=== PATIENT | female | born 1970 | race Caucasian/White ===

== ENCOUNTER 2018-02-22 17:42 | Emergency (ER) | payer MEDICAID, SELFPAY ==
[2018-02-22 17:43] VITALS: BP 151/104; PULSE 89; RESP 16; TEMP 36.8; O2SAT 98; BMI 32.9
[2018-02-22 17:55] VITALS: BP 160/101; PULSE 62; RESP 18; O2SAT 98
[2018-02-22] MEDS: Penicillin Vk 250 MG Tablet 500 MG PO (18:01)
--- NOTE | 2018-02-22 18:01 | ED.DCSUM_ITS ---
- ER Visit Summary Date of Service: 02/22/18 Chief Complaint: Tooth pain History of Present Illness: The patient is a 47 F worsening left upper tooth pain over the past 2 weeks. Hot and cold sensitivities. Subjective fevers. Sister had leftover doxycycline for which she took yesterday, states some swelling did improve. Does not have a dentist. Use Orajel, Tylenol or Motrin with no relief. Tobacco history. No difficulty swallowing. Physical Examination: General: Alert and oriented ?3, no acute distress HEENT: Normocephalic, atraumatic. Moist mucosa membranes. There is dental decay of the premolars on the left, there is no fluctuance or drainage. Slightly tender to palpation. Also decayed extracted tooth number to the right upper premolar, nontender. Extracted tooth 29 and 30. No sublingual edema. Airway patent. Neck: supple, nontender. Cardiovascular: Regular rate and rhythm, no murmurs Respiratory: Normal breath sounds, symmetric, no distress Abdomen: Soft, nontender, nondistended Extremities: Nontender, no edema, pulses intact ?4 Neuro: no focal neurological deficits. Test Results: [] Emergency Department Course and Treatment: Patient started on penicillin. Vital signs are stable. I offered a dental block for symptoms, however she declined. She will continue Tylenol and Motrin. She is given dental list and also discussed to call her insurance company for dentist that may take her insurance in the area. Patient understands and agrees with plan. Treatment Plan: [] Disposition: Discharge Impression: 1. Dental caries 2. Dentalgia This note was generated with [employer] dictation software. It may contain incorrect words, spelling, and punctuation that were not noted in review of the chart prior to signing ED Disposition - Plan for ED Patient: Disposition: Home or Assisted Living Chief Complaint: Dental Diagnosis: Dental caries, Dentalgia Instructions: ED Cavity Dental, ED Tooth Pain Prescriptions: Penicillin V Potassium 500 mg PO 4X/DAY #40 tablet Referrals: NOT,DEFINED [Primary Care Provider] - Dentist,Your [STAFF PHYSICIAN] - 2 Days
[2018-02-22 18:02] VITALS: BP 150/99; PULSE 74; RESP 16; O2SAT 98
== END 2018-02-22 18:07 | disposition home or self-care (01) ==
PROVIDERS: Emergency Provider Emergency Medicine
DX: K02.9 Dental caries, unspecified (principal); Z72.0 Tobacco use
CPT/HCPCS: 99283

== ENCOUNTER 2018-04-06 09:48 | Emergency (ER) | payer MEDICAID, SELFPAY ==
[2018-04-06 09:49] VITALS: BP 166/100; PULSE 78; RESP 18; TEMP 36.6; O2SAT 100; BMI 32.7
[2018-04-06 11:02] VITALS: BP 173/90; PULSE 55; RESP 16; O2SAT 100
--- NOTE | 2018-04-06 11:02 | ED.VIS.GEN ---
History of Present Illness Chief Complaint: Dental Informant: Patient Onset: Days - 3 Context: Sudden Onset - since dental extraction before the weekend Timing: Continuous Quality: ache/throb Location: extraction sites bilat maxillary molars Current Severity: Severe Maximum Severity: Severe Worsened by: eating Associated Symptoms: no fevers, swelling, bleeding Narrative: Try to contact her dentist but it is and no one has answered. She is allergic to codeine, she gets hives and near syncope, they prescribed her hydrocodone and after taking 1 pill she had transient episode of some of the same symptoms so she did not take anymore but is only been taking the ibuprofen that they gave her for pain and she is having trouble eating. - Past Medical History (1) Seizure disorder Status: Chronic Past Medical History - Allergies and Home Meds Allergies/Adverse Reactions: Allergies codeine Allergy (Verified 04/06/18 09:52) Hives Home Medications: Home Medications Medication Instructions Recorded Gabapentin [Neurontin] 400 mg PO TIDCM 04/06/18 Meloxicam [Mobic] 15 mg PO DAILY 04/06/18 Pregabalin [Lyrica] 50 mg PO BID 04/06/18 traMADol [Ultram] 50 mg PO Q4H PRN PRN 2 Days #8 tab 04/06/18 Primary Care Physician: Care Physician,No Primary [Primary Care Provider] - Smoking Status: Current every day smoker Drugs: None Review of Systems ENT: Reports: - - Dental pain. See HPI. No neck pain or stiffness. No sinus pressure or rhinorrhea. Physical Exam Vital Signs/Narrative: Vital Signs Temp Pulse Resp BP Pulse Ox 04/06/18 09:49 98 F 78 18 166/100 H 100 General: Well nourished, Well developed Head: Normocephalic, Atraumatic Eyes: Perrl, EOMI ENT: Moist mucous membranes, No rhinorrhea, - - Dental extraction sites have some granulation tissue, there is no bleeding or discharge. No gingival swelling. No trismus. No abscess. Neck: Supple, Nontender, No lymphadenopathy Skin: Normal color, No rash Neurological: Alert, Oriented x3, Cranial nerves II-XII grossly intact, Normal Strength, Normal Sensation, Normal Gait Psychological: Normal affect Diagnostic/Tx/Re-eval - Medical Decision Making Patient states she can take tramadol okay. Will prescribe her a few of those, she is given a dose of morphine with preventative Zofran here. ED Disposition - Plan for ED Patient: Disposition: Home or Assisted Living Chief Complaint: Dental Diagnosis: Encounter for preoperative dental examination, Postoperative pain Instructions: ED Tooth Pain Prescriptions: traMADol [Ultram] 50 mg PO Q4H PRN PRN 2 Days #8 tab PRN Reason: Pain Referrals: Dentist,Your [STAFF PHYSICIAN] - As soon as possible
[2018-04-06] MEDS: Morphine 4 MG/ML Syringe SC (11:15)
[2018-04-06] MEDS: Ondansetron ODT 4 MG Tablet 8 MG PO (11:15)
== END 2018-04-06 11:49 | disposition home or self-care (01) ==
PROVIDERS: Emergency Provider Emergency Medicine
DX: K08.89 Other specified disorders of teeth and supporting structures (principal); G40.909 Epilepsy, unspecified, not intractable, without status epilepticus; F17.200 Nicotine dependence, unspecified, uncomplicated; Z98.818 Other dental procedure status; Z79.899 Other long term (current) drug therapy; Z88.5 Allergy status to narcotic agent
CPT/HCPCS: 96372; 99284

== ENCOUNTER 2018-05-31 08:17 | Emergency (ER) | payer MEDICAID, SELFPAY ==
[2018-05-31 08:18] VITALS: BP 155/106; PULSE 71; RESP 16; TEMP 35.3; O2SAT 100; BMI 31.1
--- NOTE | 2018-05-31 08:36 | ED.DCSUM_ITS ---
- ER Visit Summary Date of Service: 05/31/18 Chief Complaint: Right lateral arm pain History of Present Illness: The patient is a 47 F with history of bilateral carpal tunnel. Patient states she has been putting off surgery for quite some time and is currently awaiting a referral to orthopedics. She wears cockup splints at night as well as an elbow brace. She has been taking anti- inflammatories without improvement. Physical Examination: Vital signs significant for blood pressure 155/106. Patient's lying in bed no acute distress. Head neck examination unremarkable. Heart is regular rate and rhythm. Lung sounds are clear. Upper extremity examination was tenderness of the carpal tunnel on each wrist with tenderness of the thenar eminence. She has mild decreased sensation to light touch in the fingertips. She has normal cap refill. There is no focal tenderness at the elbow or shoulders. Test Results: [] Emergency Department Course and Treatment: Oars report was performed. She then had 4 perceptions in the past year, most recent for 8 tabs of Ultram in March. She will be given a short course of Ultram as well as a prednisone taper. She is referred to orthopedics for follow-up. Treatment Plan: [] Disposition: Discharge Impression: Bilateral carpal tunnel This note was generated with [employer] dictation software. It may contain incorrect words, spelling, and punctuation that were not noted in review of the chart prior to signing ED Disposition - Plan for ED Patient: Chief Complaint: Upper Extremity Injury Referrals: Care Physician,No Primary [Primary Care Provider] -
--- NOTE | 2018-05-31 08:36 | ED.DEP ---
ED Disposition - Plan for ED Patient: Disposition: Home or Assisted Living Chief Complaint: Upper Extremity Injury Instructions: ED Carpal Tunnel Prescriptions: traMADol [Ultram] 50 mg PO Q4H PRN PRN 3 Days #12 tablet PRN Reason: Pain Prednisone [Deltasone] 60 mg PO DAILY #15 tab Referrals: De England DO [STAFF PHYSICIAN] - As soon as possible
[2018-05-31] MEDS: traMADol 50 MG Tablet 100 MG PO (09:12)
[2018-05-31] MEDS: predniSONE 20 MG Tablet 60 MG PO (09:13)
== END 2018-05-31 09:21 | disposition home or self-care (01) ==
LOC: ED 08:55
PROVIDERS: Emergency Provider Emergency Medicine
DX: G56.03 Carpal tunnel syndrome, bilateral upper limbs (principal); Z72.0 Tobacco use
CPT/HCPCS: 99283

== ENCOUNTER 2018-06-18 16:56 | Emergency (ER) | payer MEDICAID, SELFPAY ==
[2018-06-18 16:57] VITALS: BP 172/113; PULSE 84; RESP 19; TEMP 37.1; O2SAT 100; BMI 36.6
[2018-06-18] MEDS: Ipratropium/Albuterol Sulfate 3 ML AMPUL.NEB INHALATION (17:37)
[2018-06-18 17:38] VITALS: O2SAT 98
[2018-06-18 17:41] VITALS: PULSE 93; RESP 21; O2SAT 100
[2018-06-18] MEDS: Aspirin 81 MG TAB.CHEW 324 MG PO (17:44)
[2018-06-18] MEDS: 0.9% Normal Saline 1,000 ML 150 ML IV (17:44)
--- NOTE | 2018-06-18 17:50 | RAD_ITS ---
STUDY: X-RAY CHEST REASON FOR EXAM: Female, 47 years old. Chest pain TECHNIQUE: PA and lateral COMPARISON: None. FINDINGS: The lungs are clear and expanded. There is no demonstrated pleural abnormality. Borderline cardiomegaly Normal mediastinum and tripp. Normal visualized pulmonary arteries. Normal visualized aortic arch and descending thoracic aorta. Dorsal spine demonstrates mild spondylosis Normal visualized ribs, clavicles, and shoulders. There is no demonstrated abnormality of the visualized soft tissue structures of the upper abdomen. RAD/Chest PA and Lateral IMPRESSION: No acute cardiopulmonary pathology Electronically Signed: Rene Joyce MD at 19:06 EDT , Service support ,
[2018-06-18 17:55] LABS: Absolute Lymphocyte Count 2.04 X10^3/ul (0.83-4.51); Absolute Neutrophil Count 6.1 X10^3/uL (2.0-7.7); Basophil# 0.07 X10^3/uL; Basophil% 0.7 % (0-1); Eosinophil# 0.53 X10^3/uL; Eosinophils% 5.6 % (0-5); Hematocrit 39.2 % (37-47); Hemoglobin 12.4 g/dl (12.0-15.0); Lymphocyte # 2.04 X10^3/ul (4.0); Lymphocyte % 21.5 % (19-41); Mean Corp Hgb Conc 31.6 g/gl (32-36); Mean Corpuscular Hgb 28.3 pg (27.0-32.0); Mean Corpuscular Volume 89.5 fL (81-99); Mean Platelet Vol. 8.9 fl (6.2-12.0); Monocyte# 0.73 X10^3/uL; Monocyte% 7.7 % (0-10); Neutrophil % 64.1 % (47-70); POSITIVE COUNT NO; POSITIVE DIFFERENTIAL NO; POSITIVE MORPHOLOGY NO; Platelet Count 445 K/mm3 (150-450); RBC Distribution Width CV 12.4 % (11.6-14.6); RBC Distribution Width SD 39.7 fl (35.1-43.9); Red Blood Count 4.38 M/mm3 (4.2-5.4); White Blood Count 9.5 K/mm3 (4.4-11.0)
[2018-06-18 17:59] LABS: D-Dimer Quantitative (DVT/PE) 0.61 FEU/ug/m (0.27-0.49)
--- NOTE | 2018-06-18 18:05 | CT_ITS ---
STUDY: CTA CHEST REASON FOR EXAM: Female, 47 years old. Chest pain RADIATION DOSAGE (If Supplied By Facility): CTDIvol = ( 14.72 ) mGy, DLP = ( 454.72 ) mGycm TECHNIQUE: The examination was performed with the intravenous administration of 100ml ml of Isovue 370 contrast material. Post-processing of the angiographic images was performed, with multiplanar reformation and 3D reconstruction. Individualized dose optimization techniques were used for this CT. COMPARISON: None. FINDINGS: Normal enhancement of the main pulmonary artery and right and left pulmonary arteries. Normal enhancement of the bilateral peripheral pulmonary arteries. There is no demonstrated pulmonary embolism. Normal thoracic aorta and visualized great vessels. There is no demonstrated aortic dissection. Heart appears mildly enlarged. Normal mediastinum. Normal hilar regions. Normal visualized trachea and bronchi. The lungs are well expanded. Minor diffuse interstitial thickening. No focal infiltrates or pulmonary nodule Normal pleura. Normal chest wall structures. Dorsal spine demonstrates spondylosis Normal visualized upper abdomen. CT/CTA Chest W/WO Contrast IMPRESSION: Mild nonspecific interstitial thickening.. No acute abnormalities. No evidence for pulmonary embolus aortic aneurysm periaortic leak or dissection Electronically Signed: Rene Joyce MD at 19:10 EDT , Service support ,
[2018-06-18 18:22] LABS: Anion Gap 8 (5-15); BUN 9 mg/dL (7-18); BUN/Creat Ratio 7.9 RATIO (10-20); Calcium,Total 9.1 mg/dL (8.5-10.1); Chloride 104 mmol/L (98-107); Creatinine, Serum 1.14 mg/dL (0.55-1.02); EST Glomerular Filtration Rate 54 mL/min (>60); Est Glom Filt Rate - Afr Amer 66 mL/min (>60); Estimated Creatinine Clearance 48.77 ml/min; Glucose 69 mg/dL (74-106); Potassium 3.9 mmol/L (3.5-5.1); Sodium Level 144 mmol/L (136-145)
[2018-06-18 19:13] VITALS: BP 154/80; PULSE 90; RESP 14; O2SAT 94
[2018-06-18 20:03] VITALS: BP 150/70; PULSE 85; RESP 14; O2SAT 98
--- NOTE | 2018-06-18 20:24 | ED.DCSUM_ITS ---
- ER Visit Summary Date of Service: 06/18/18 Chief Complaint: [Cough] History of Present Illness: The patient is a 47 F [presents the emergency department with a cough that she has had for several weeks. Patient states that she was seen 2 weeks ago and in the emergency department and diagnosed with bronchitis and started on a Z-Bc as well as Tessalon Perles. Patient also was treated with prednisone. Patient continues to cough and she complains of feeling short of breath at times feeling like it is hard to take a deep breath due to some discomfort in her chest. Patient complains of generalized fatigue. Patient did have subjective fever, chills, and sweats. She denies recent travel or surgery. No history of PE or DVT. She has no real medical history.] Physical Examination: [HEENT-PERRLA, EOMI. Cranial nerves II through XII grossly intact. TMs clear. Mucous membranes moist. No adenopathy. Cardiovascular-regular rate and rhythm without murmur or ectopy Lungs-clear to auscultation, chest wall stable without crepitus or subcu emphysema Abdomen-normoactive bowel sounds, soft, nontender, no rebound or rigidity, no peritoneal signs. Extremities-intact ?4, normal range of motion, normal pulses, atraumatic] Test Results: [Chest x-ray obtained was normal. CBC with differential obtained showed a white blood cell count of 9.5, hemoglobin 12, hematocrit 39, platelets 445. Chemistries unremarkable. BUN was 9 creatinine 1.14. D-dimer was 0.61. Troponin was less than 0.015. EKG obtained arrival shows sinus rhythm with a ventricular rate of 82 bpm with no acute I segment changes. Because of the elevated d-dimer a CT of the chest was obtained which showed no evidence of PE or dissection or anything significant.] Emergency Department Course and Treatment: [Patient was given a DuoNeb aerosol] Treatment Plan: [Patient will be dispensed a DuoNeb aerosol and will be given a prescription for Tessalon Perles. Patient will be referred to Dr. Traore who is on-call for pulmonology] Disposition: [Discharged home in stable condition] Impression: [Chest pain-noncardiac Cough Dyspnea] This note was generated with [employer] software. It may contain incorrect words, spelling, and punctuation that were not noted in review of the chart prior to signing ED Disposition - Plan for ED Patient: Chief Complaint: Chest Pain Referrals: Jhoana Son, RN [Primary Care Provider] -
--- NOTE | 2018-06-18 20:24 | ED.DEP ---
ED Disposition - Plan for ED Patient: Chief Complaint: Chest Pain Instructions: ED Chest Pain NonCardiac, ED Dyspnea Shortness of Breath Prescriptions: Benzonatate [Tessalon Perle] 200 mg PO TID PRN PRN #20 cap PRN Reason: Cough Referrals: Jhoana Son RN [Primary Care Provider] - Eliezer Traore MD [STAFF PHYSICIAN] - 3-5 Days
[2018-06-18 20:29] VITALS: BP 164/101; PULSE 74; RESP 19; O2SAT 99
== END 2018-06-18 20:39 | disposition home or self-care (01) ==
LOC: ED 18:35
PROVIDERS: Emergency Provider Emergency Medicine
DX: R07.89 Other chest pain (principal); R74.8 Abnormal levels of other serum enzymes; R05 Cough; R06.00 Dyspnea, unspecified; Z72.0 Tobacco use
CPT/HCPCS: 71046; 71275; 80048; 84484; 85025; 85379; 93005; 94640; 96360; 96361; 99285; Q9967; A4216

== ENCOUNTER 2018-08-15 07:53 | Emergency (ER) | payer MEDICAID, SELFPAY ==
[2018-08-15 07:54] VITALS: BP 176/98; PULSE 97; RESP 15; TEMP 36.5; O2SAT 98; BMI 36.2
--- NOTE | 2018-08-15 08:05 | ED.DCSUM_ITS ---
- ER Visit Summary Date of Service: 08/15/18 Chief Complaint: Left wrist pain History of Present Illness: The patient is a 47 F presents to the emergency department for a wound check. The patient had a left carpal tunnel release by Dr. Ramsey about 9 days ago. She states she is been recovering well. She states that she was outside of her house on Saturday. Someone had knocked over a pallet, and she went to grab it. She states when she grabbed it, she felt something pop in her wrist. When she took on her dressing, she noticed that 1 of her stitches was loose. She is been changing the dressing daily. She states that there was some scant drainage from the area. She denies any increasing pain. She denies any fevers or chills. She is not scheduled to follow-up with orthopedics until next week. Physical Examination: Exam is relatively unremarkable. Patient's incision is clean and dry. There is no purulence. There is minimal erythema around the wound edges. The most distal stitch has dehisced. The rest of the stitches are intact. There is no significant tenderness to palpation. Her pulses are normal. Her neurologic function is preserved. Test Results: [] Emergency Department Course and Treatment: The patient presents to the emergency department with wound dehiscence. It is only a very small area. The rest of her stitches are intact. I did discuss the patient with Dr. Ramsey. At this time, we are going to place a Steri-Strip at the distal end. The patient will be placed on Keflex. There is no necrosis of the skin. There is no significant cellulitis or drainage. She will keep her outpatient follow-up. I did funeral prearrangement counselor her on concerning symptoms and reasons to return. I instructed her that the area increases with redness, pain, fever or other dangerous symptoms she needs to return to the emergency department for reevaluation. She is comfortable with this plan of care. Treatment Plan: [] Disposition: Discharge Impression: 1. Postoperative wound dehiscence left wrist This note was generated with [employer] software. It may contain incorrect words, spelling, and punctuation that were not noted in review of the chart prior to signing ED Disposition - Plan for ED Patient: Chief Complaint: Wound Check Instructions: ED Wound Infec After Surgery Prescriptions: Cephalexin [Keflex] 500 mg PO Q6 #40 cap Referrals: Sonny Ramsey DO [STAFF PHYSICIAN] -
[2018-08-15] MEDS: Cephalexin 250 MG Capsule 500 MG PO (08:20)
== END 2018-08-15 08:22 | disposition home or self-care (01) ==
LOC: ED 08:11
PROVIDERS: Emergency Provider Emergency Medicine
DX: T81.31XA Disruption of external operation (surgical) wound, not elsewhere classified, initial encounter (principal)
CPT/HCPCS: 99282

== ENCOUNTER 2019-02-10 17:41 | Observation (INO) | payer MEDICAID, SELFPAY ==
[2019-02-10] VITALS (10 sets, daily range): BP systolic 109–146; BP diastolic 69–131; PULSE 62–77; RESP 11–21; TEMP 36.6; O2SAT 97–99; BMI 37.1; BMI 37.2; BMI 35.7
--- NOTE | 2019-02-10 18:14 | EKG12_ITS ---
Test Reason : REPEAT CP Blood Pressure : / mmHG Vent. Rate : 063 BPM Atrial Rate : 063 BPM P-R Int : 130 ms QRS Dur : 092 ms QT Int : 426 ms P-R-T Axes : 037 052 015 degrees QTc Int : 435 ms Sinus rhythm with Fusion complexes Minimal voltage criteria for LVH, may be normal variant Nonspecific T wave abnormality , cannot exclude acute anterior ischemia Abnormal ECG Confirmed by BRADLEY ORTEGA ([id number]), fan mail editor BENITO OLSEN ([id number]) on 02/13/2019 11:19:15 AM Referred By: Justin Patel Confirmed By:BRADLEY ORTEGA
--- NOTE | 2019-02-10 18:27 | ED.VISSUMM ---
- ER Visit Summary Date of Service: 02/10/19 Chief Complaint: Left-sided chest pain History of Present Illness: The patient is a 48 F history of a reportedly nonsignificant cardiac cath 2 years ago at [facility]. History of hypertension high cholesterol currently taking no medications. She is on no blood thinners. She states yesterday afternoon she got sudden onset left-sided chest pain has been constant. Associated with nausea, diaphoresis and exertion. Over the last several weeks she has had exertional dyspnea and very minimal exertional chest pain with walking steps. No history of DVT or PE. No recent travel, surgery or calf pain. She does have a family history her mother had cardiac disease in her 60s underwent a CABG and had an [place]. Physical Examination: Middle-aged female. Vital signs are stable afebrile. Pulse ox 99% on room air no signs of hypoxia. No distress. HEENT exam unremarkable. Neck nontender no JVD. Lungs clear to auscultation bilaterally. Heart regular rate and rhythm rate about 60 no murmur. Chest was completely nontender. No ecchymosis or bruising. Abdomen is soft and nontender. Extremities moves all 4. She is a moderate-sized bruise on her right thigh that she says occurred without any trauma. Calves are nontender without edema or cords. Equal symmetrical radial pulses. Back nontender. Neurologically she is awake alert with no focal motor deficits. Test Results: Initial EKG shows a sinus rhythm rate of 77 with LVH. There is questionable convex ST abnormalities in V1 and V2 with similar to prior EKG from June 2018. A repeat EKG was obtained again shows a sinus rhythm rate of [address]-T wave changes but they are not new. No depression. Otherwise no other inverted T waves. Chest x-ray shows no acute abnormality. Normal cardiac silhouette. CBC White count of 9. Hemoglobin 12. Electrolytes unremarkable normal creatinine and gap. Troponin normal at 0.015. A second EKG was performed again shows a sinus rhythm at a rate of [address]-T wave abnormalities in V1 and V2 no significant change from the first and only subtly different from a prior EKG from 2018 Emergency Department Course and Treatment: Baby aspirin p.o. Nitro paste. Treatment Plan: Patient has a decent story for this potentially being cardiac chest pain. Risk factors include family history and she is a smoker. We attempted to get old cardiac cath report from [place] and are awaiting those results. I will speak to the hospitalist about admission. Disposition: Admission Impression: Acute chest pain uncertain etiology This note was generated with [employer] dictation software. It may contain incorrect words, spelling, and punctuation that were not noted in review of the chart prior to signing ED Disposition - Plan for ED Patient: Referrals: Jhoana Son, CAFE MANAGER-C [Primary Care Provider] -
--- NOTE | 2019-02-10 18:30 | ED.DCSUM_ITS ---
- ER Visit Summary Date of Service: 02/10/19 Chief Complaint: Left-sided chest pain History of Present Illness: The patient is a 48 F history of a reportedly nonsignificant cardiac cath 2 years ago at [facility]. History of hypertension high cholesterol currently taking no medications. She is on no blood thinners. She states yesterday afternoon she got sudden onset left-sided chest pain has been constant. Associated with nausea, diaphoresis and exertion. Over the last several weeks she has had exertional dyspnea and very minimal exertional chest pain with walking steps. No history of DVT or PE. No recent travel, surgery or calf pain. She does have a family history her mother had cardiac disease in her 60s underwent a CABG and had an [place]. Physical Examination: Middle-aged female. Vital signs are stable afebrile. Pulse ox 99% on room air no signs of hypoxia. No distress. HEENT exam unremarkable. Neck nontender no JVD. Lungs clear to auscultation bilaterally. Heart regular rate and rhythm rate about 60 no murmur. Chest was completely nontender. No ecchymosis or bruising. Abdomen is soft and nontender. Extremities moves all 4. She is a moderate-sized bruise on her right thigh that she says occurred without any trauma. Calves are nontender without edema or cords. Equal symmetrical radial pulses. Back nontender. Neurologically she is awake alert with no focal motor deficits. Test Results: Initial EKG shows a sinus rhythm rate of 77 with LVH. There is questionable convex ST abnormalities in V1 and V2 with similar to prior EKG from June 2018. A repeat EKG was obtained again shows a sinus rhythm rate of [address]-T wave changes but they are not new. No depression. Otherwise no other inverted T waves. Chest x-ray shows no acute abnormality. Normal cardiac silhouette. CBC White count of 9. Hemoglobin 12. Electrolytes unremarkable normal creatinine and gap. Troponin normal at 0.015. A second EKG was performed again shows a sinus rhythm at a rate of [address]-T wave abnormalities in V1 and V2 no significant change from the first and only subtly different from a prior EKG from 2018 Emergency Department Course and Treatment: Baby aspirin p.o. Nitro paste. Treatment Plan: Patient has a decent story for this potentially being cardiac chest pain. Risk factors include family history and she is a smoker. We attempted to get old cardiac cath report from [place] and are awaiting those results. I will speak to the hospitalist about admission. Disposition: Admission Impression: Acute chest pain uncertain etiology This note was generated with [employer] dictation software. It may contain incorrect words, spelling, and punctuation that were not noted in review of the chart pr ior to signing ED Disposition - Plan for ED Patient: Referrals: Jhoana Son, [employer]AMETER-C [Primary Care Provider] -
[2019-02-10] MEDS: Nitroglycerin Oint 1 INCH PACKET TRANSDERM. (18:31)
--- NOTE | 2019-02-10 18:36 | RAD_ITS ---
STUDY: X-RAY CHEST REASON FOR EXAM: Female, 48 years old. Chest pain TECHNIQUE: Single frontal view of the chest. COMPARISON: 06/18/2018 FINDINGS: The lungs are clear and expanded. There is no demonstrated pleural abnormality. Normal size heart. Normal mediastinum and tripp. Normal visualized pulmonary arteries. Normal visualized aortic arch and descending thoracic aorta. Normal visualized thoracic spine. Normal visualized ribs, clavicles, and shoulders. There is no demonstrated abnormality of the visualized soft tissue structures of the upper abdomen. RAD/Chest 1 View (Portable) IMPRESSION: Normal x-ray examination of the chest. Electronically Signed: Morgan Johnston MD at 19:27 EDT Tel , Service support ,
[2019-02-10 18:56] LABS: Absolute Lymphocyte Count 2.34 X10^3/ul (0.83-4.51); Absolute Neutrophil Count 5.6 X10^3/uL (2.0-7.7); Basophil# 0.03 X10^3/uL; Basophil% 0.3 % (0-1); Eosinophil# 0.33 X10^3/uL; Eosinophils% 3.7 % (0-5); Hematocrit 38.9 % (37-47); Hemoglobin 12.7 g/dl (12.0-15.0); Lymphocyte # 2.34 X10^3/ul (4.0); Lymphocyte % 26.1 % (19-41); Mean Corp Hgb Conc 32.6 g/gl (32-36); Mean Corpuscular Hgb 28.5 pg (27.0-32.0); Mean Corpuscular Volume 87.4 fL (81-99); Mean Platelet Vol. 9.1 fl (6.2-12.0); Monocyte# 0.64 X10^3/uL; Monocyte% 7.2 % (0-10); Neutrophil # 5.59 X10^3/uL (2.7-7.7); Neutrophil % 62.5 % (47-70); Platelet Count 418 K/mm3 (150-450); RBC Distribution Width CV 13.2 % (11.6-14.6); RBC Distribution Width SD 42.4 fl (35.1-43.9); Red Blood Count 4.45 M/mm3 (4.2-5.4)
[2019-02-10 18:57] LABS: POSITIVE COUNT NO; POSITIVE DIFFERENTIAL NO; POSITIVE MORPHOLOGY NO
[2019-02-10 19:14] LABS: Anion Gap 6 (5-15); BUN 10 mg/dL (7-18); BUN/Creat Ratio 10.8 RATIO (10-20); Calcium,Total 8.8 mg/dL (8.5-10.1); Chloride 106 mmol/L (98-107); Creatinine, Serum 0.93 mg/dL (0.55-1.02); EST Glomerular Filtration Rate 69 mL/min (>60); Est Glom Filt Rate - Afr Amer 83 mL/min (>60); Estimated Creatinine Clearance 59.15 ml/min; Glucose 68 mg/dL (74-106); Potassium 3.7 mmol/L (3.5-5.1); Sodium Level 141 mmol/L (136-145)
--- NOTE | 2019-02-10 20:30 | HP.PCM_ITS ---
Problem List (1) Chest pain at rest Status: Acute (2) Seizure disorder Status: Chronic History of Present Illness Date of Admission: 02/10/19 Chief Complaint: chest pain The patient is a 48 year old F with a significant history of tobacco abuse; hypertension; seizure disorder and hyperlipidemia who presented to the emergency department with 1 day history of excruciating episodic left-sided chest pain. She describes her chest pain as cramping. Associated with her symptoms is nausea; shortness of breath; a feeling of passing out and diaphoresis. She denies any vomiting. Movement exacerbates the pain. Nitroglycerin paste which she received at the emergency department helped improve her pain. She was given aspirin by the paramedics. Two years ago patient had a cardiac workup at [facility]. Reportedly heart catheter was unremarkable at that time. She reports swelling of her bilateral legs and bruises to bilateral thighs. She reported she lost about 100 pounds and she no longer required a blood pressure medicine. She does report that she no longer requires any seizure medicine at this time. She reported that her mother has heart disease. Her mother had CABG when she was around age 68. Also her mother had a stroke. She reported that her father had hypertension and diabetes. Past Medical History Past Medical History (Chronic Problems): Chronic Problems (Last Reviewed 02/10/19 @ 20:46 by Justin Patel MD) Seizure disorder (Chronic) Medical History: Medical History (Last Reviewed 02/10/19 @ 20:46 by Justin Patel MD) Anemia D64.9 Allergies codeine Allergy (Verified 02/10/19 17:47) Hives hydrocodone Allergy (Verified 02/10/19 18:02) Hives oxycodone Allergy (Verified 02/10/19 18:02) Hives Home Medications: Ambulatory Orders Medication Instructions Recorded NK 02/10/19 Surgical History: - - x3 Lives: Spouse/ Significant Other Smoking Status: Current every day smoker Tobacco Use: Cigarettes - *Family History Maternal Family History: Family History (Last Reviewed 02/10/19 @ 20:44 by Justin Patel MD) Other CVA (cerebral vascular accident) Heart disease Paternal Family History: Family History (Last Reviewed 02/10/19 @ 20:44 by Justin Patel MD) Other CVA (cerebral vascular accident) Heart disease Review of Systems Constitutional: Denies: Chills, Fever, Weight Change HEENT: Denies: Head Aches, Sinus Congestion, Sinus Drainage Cardiovascular: Reports: Chest Pain, Edema. Denies: Palpitations Respiratory: Reports: Shortness of Breath. Denies: Cough, Shortness of breath at rest, Sputum production Gastrointestinal: Reports: Nausea. Denies: Abdominal Pain, Vomiting Genitourinary: Denies: Dysuria Musculoskeletal: Denies: Joint Pain, Joint Tenderness Skin: Denies: Rash, Wounds Neurological: Denies: Numbness, Tingling, Focal weakness Psychiatric: Denies: Anxiety, Depression, Homicidal Ideations, Suicidal Ideations Hematologic/ Lymphatic: Denies: Easy Bruising, Easy Bleeding VTE Information - Inpt Only VTE Present on Admission: No VTE Mechan Device Prophylaxis: None VTE Pharm Prophylaxis ordered?: Yes Patient Problems: Active and Suspected Problems (Last Reviewed 02/10/19 @ 20:46 by Justin Patel MD) Chest pain at rest (Acute) - Physical Exam General: Alert, Oriented x3, Cooperative HEENT: Atraumatic, PERRLA, EOMI, Normocephalic Neck: Supple, No JVD, Negative Carotid Bruits Lungs: Clear to auscultation, Normal air movement Cardiovascular: Regular rate, No murmurs Abdomen: Bowel Sounds Present, Soft, Non Tender Extremities: No edema, Capillary Refill Less than 3 Seconds Skin: - - Ecchymosis on bilateral thighs. Musculoskeletal: No Tenderness to Palpation of Joints or Extremities Neurological: Neuro grossly intact Psych/Mental Status: Normal Affect, Appropriate Vital Signs Temp Pulse Resp BP Pulse Ox 98 F 62 14 117/87 H 97 02/10/19 17:42 02/10/19 20:00 02/10/19 20:00 02/10/19 20:00 02/10/19 20:00 Oxygen Delivery Method Room Air Weight: 92.2 kg Body Mass Index (BMI) 37.1 Laboratory Tests Past 24 Hrs 02/10/19 02/10/19 18:00 18:00 WBC 9.0 RBC 4.45 Hgb 12.7 Hct 38.9 MCV 87.4 MCH 28.5 MCHC 32.6 RDW 13.2 RDW Differential 42.4 Plt Count 418 MPV 9.1 Immature Gran % (Auto) 0.200 Neut % (Auto) 62.5 Lymph % (Auto) 26.1 Robeson % (Auto) 7.2 Eos % (Auto) 3.7 Baso % (Auto) 0.3 Absolute Neuts (auto) 5.6 Absolute Lymphs (auto) 2.34 Total Counted Not Reportable Sodium 141 Potassium 3.7 Chloride 106 Carbon Dioxide 29.0 Anion Gap 6 BUN 10 Creatinine 0.93 Estim Creat Clear Calc 59.15 Est GFR (MDRD) Af Amer 83 Est GFR (MDRD) Non-Af 69 BUN/Creatinine Ratio 10.8 Glucose 68 L Calcium 8.8 Troponin I < 0.015 Assessment/Plan All Active Problems (Last Reviewed 02/10/19 @ 20:46 by Justin Patel MD) Chest pain at rest (Acute) The patient is a 48 year old F with a significant history of tobacco abuse; hypertension; seizure disorder and hyperlipidemia who presented to the emergency department with 1 day history of excruciating episodic left-sided chest pain. Chest pain Admit to a monitored bed on PCU CXR independently reviewed confirms no acute cardiopulmonary process. EKG independently reviewed confirms T wave inversion in leads V2. Repeated EKG showed similar findings. Old records reviewed showed no T wave inversions on EKG taken on 06/18/2018. ASA 81 mg p.o. daily Patient with nitroglycerin placed at the emergency department Morphine as needed for pain We will check lipid panel. High intensity statin nightly ordered Serial cardiac enzymes Stat EKG as needed for chest pain Chemical Stress test in the AM if the cardiac enzymes are negative Hypoglycemia Blood glucose on BMP was 68. We will check Accu-Chek every 4 hours. Placed on D5 half-normal saline at this time. Tobacco abuse Counseled Declined nicotine patch. Hypertension Reportedly did not need blood pressure medication after losing 100 pounds. On presentation blood pressure was within goal. Trend blood pressures. Seizure disorder Reportedly she is not taking any medication at home at this time. DVT prophylaxis Subcutaneous Lovenox Code Visit OBSV E&M: 58060 Initial observation care L3
--- NOTE | 2019-02-10 20:47 | EKG12_ITS ---
Test Reason : CP Blood Pressure : / mmHG Vent. Rate : 077 BPM Atrial Rate : 077 BPM P-R Int : 128 ms QRS Dur : 076 ms QT Int : 396 ms P-R-T Axes : 000 057 009 degrees QTc Int : 448 ms Normal sinus rhythm Minimal voltage criteria for LVH, may be normal variant Nonspecific T wave abnormality , cannot exclude ischemia Abnormal ECG Confirmed by BRADLEY ORTEGA ([id number]), magazine editor BENITO OLSEN ([id number]) on 02/13/2019 11:20:11 AM Referred By: Justin Patel Confirmed By:BRADLEY ORTEGA
[2019-02-10] MEDS: Dext 5%-0.45% NS 1,000 ML 75 ML IV (21:02)
[2019-02-10] MEDS: Atorvastatin Calcium 80 MG Tablet PO (21:33)
[2019-02-11 00:36] LABS: Bedside Glucose 90 mg/dL (70-110)
[2019-02-11] MEDS: Acetaminophen 325 MG Tablet 650 MG PO (01:45)
[2019-02-11 02:26] LABS: Bedside Glucose 108 mg/dL (70-110)
[2019-02-11 03:00] VITALS: PULSE 79
[2019-02-11 03:15] VITALS: BP 122/76; PULSE 70; RESP 16; TEMP 36.7; O2SAT 96
--- NOTE | 2019-02-11 05:55 | EKG12_ITS ---
Test Reason : AM Blood Pressure : / mmHG Vent. Rate : 061 BPM Atrial Rate : 061 BPM P-R Int : 134 ms QRS Dur : 092 ms QT Int : 400 ms P-R-T Axes : 067 054 031 degrees QTc Int : 402 ms Normal sinus rhythm Normal ECG When compared with ECG of 10-FEB-2019 20:47, MANUAL COMPARISON REQUIRED, DATA IS UNCONFIRMED Confirmed by ROSE POWERS, TAMIKA ([id number]), image editor BENITO OLSEN ([id number]) on 02/16/2019 1:19:06 PM Referred By: Justin Patel Confirmed By:TAMIKA ROSE MD
[2019-02-11 06:01] VITALS: BP 145/90; PULSE 63; RESP 16; TEMP 36.6; O2SAT 97
[2019-02-11] MEDS: Aspirin E.C. 81 MG Tablet PO (06:06)
[2019-02-11 06:22] LABS: Prothrombin Time (Protime)PT. 12.6 SECONDS (11.7-14.9)
[2019-02-11 06:23] LABS: Partial Thromboplast Time 29.9 Seconds (24.1-36.2)
[2019-02-11 06:33] LABS: Absolute Lymphocyte Count 2.45 X10^3/ul (0.83-4.51); Absolute Neutrophil Count 5.2 X10^3/uL (2.0-7.7); Basophil# 0.04 X10^3/uL; Basophil% 0.5 % (0-1); Eosinophil# 0.31 X10^3/uL; Eosinophils% 3.5 % (0-5); Hematocrit 37.6 % (37-47); Hemoglobin 11.8 g/dl (12.0-15.0); Lymphocyte # 2.45 X10^3/ul (4.0); Lymphocyte % 27.7 % (19-41); Mean Corp Hgb Conc 31.4 g/gl (32-36); Mean Corpuscular Hgb 27.8 pg (27.0-32.0); Mean Corpuscular Volume 88.7 fL (81-99); Mean Platelet Vol. 8.8 fl (6.2-12.0); Monocyte# 0.78 X10^3/uL; Monocyte% 8.8 % (0-10); Neutrophil # 5.24 X10^3/uL (2.7-7.7); Neutrophil % 59.3 % (47-70); Platelet Count 366 K/mm3 (150-450); RBC Distribution Width CV 13.5 % (11.6-14.6); RBC Distribution Width SD 43.7 fl (35.1-43.9); Red Blood Count 4.24 M/mm3 (4.2-5.4); White Blood Count 8.8 K/mm3 (4.4-11.0)
[2019-02-11 06:36] LABS: POSITIVE COUNT NO; POSITIVE DIFFERENTIAL NO; POSITIVE MORPHOLOGY NO
[2019-02-11 06:39] LABS: Anion Gap 5 (5-15); BUN 14 mg/dL (7-18); BUN/Creat Ratio 15.3 RATIO (10-20); Calcium,Total 8.5 mg/dL (8.5-10.1); Chloride 107 mmol/L (98-107); Cholesterol 135 mg/dL (200); Creatinine, Serum 0.92 mg/dL (0.55-1.02); EST Glomerular Filtration Rate 70 mL/min (>60); Est Glom Filt Rate - Afr Amer 85 mL/min (>60); Estimated Creatinine Clearance 59.79 ml/min; Glucose 101 mg/dL (74-106); High Density Lipoprotein 51 mg/dL; Potassium 3.7 mmol/L (3.5-5.1); Sodium Level 139 mmol/L (136-145); Triglycerides 77 mg/dL; Very Low Density Lipoprotein 15 mg/dL (5-40)
[2019-02-11 07:29] VITALS: PULSE 62
[2019-02-11 07:45] LABS: Bedside Glucose 111 mg/dL (70-110)
[2019-02-11 08:16] VITALS: O2SAT 95
--- NOTE | 2019-02-11 11:38 | DCINST_ITS ---
- Discharge Diagnoses Current Active Problems: Current Active and Chronic Problems (Last Reviewed 02/10/19 @ 20:46 by Justin Patel MD) Chest pain at rest (Acute) You will use the following diet at home:: No restrictions Discharge Activity: Return to Normal Activity Call your doctor if you observe: Shortness of breath, Dizziness, Fainting spells, Chest pain Allergies/Adverse Reactions: Allergies codeine Allergy (Verified 02/10/19 17:47) Hives hydrocodone Allergy (Verified 02/10/19 18:02) Hives oxycodone Allergy (Verified 02/10/19 18:02) Hives Medications to take at Discharge NK 02/10/19 Primary Care Physician: Jhoana Son NP-C [Primary Care Provider] - Please follow up with your Primary Care Physician in: 1 Week Test Results: Test results from this visit will be discussed in further detail at your follow- up appointment, if applicable. Proposed Discharge Date: 02/11/19
[2019-02-11 11:55] LABS: Bedside Glucose 77 mg/dL (70-110)
[2019-02-11 12:00] VITALS: BP 158/92; PULSE 99; RESP 18; TEMP 36.7; O2SAT 99
--- NOTE | 2019-02-11 12:20 | CASEMGMT ---
Patient has a Healthcare POA and she is aware it is not on file at [facility]. She does not have a Healthcare LW. Airam FORBES MSW
--- NOTE | 2019-02-11 12:35 | STRESSREP ---
Stress Test Report 48-year-old lady with a history of chest pain. Medications: Aspirin Lipitor. Stress protocol: Resting EKG demonstrates normal sinus bradycardia with a rate of 57 beats minute normal intervals are noted T wave inversions noted in lead V2. Next para 0.4 mg of regadenoson was infused per usual protocol followed by rapid intravenous saline flush injection continuous EKG monitoring was performed. Patient maintained sinus rhythm throughout the recording. The maximum heart rate attained was 105 bpm which was 60% of maximum predicted heart rate the maximum workload was 1 metabolic equivalent. At rest there were no ST or T wave changes noted suggest abnormal flow reserve at peak infusion nonspecific ST-T wave changes were noted the resting blood pressure 148/92 final blood pressure was 158/94 mmHg. Myocardial perfusion protocol. 11.7 mCi of technetium 99m sestamibi was injected at rest. 0.4 mg of regadenoson was infused per usual protocol peak infusion 34.6 mCi of technetium 99m sestamibi was injected stress images were obtained stress and rest images were reconstructed and compared in the short axis vertical and horizontal long axis. Gated images were also obtained per Perfusion SPECT analysis: Review of the stress images demonstrate normal uptake of tracer noted in all areas of myocardium the resting images similarly demonstrate normal uptake of tracer noted in all areas of the myocardium. No areas of reversibility are noted suggest ischemia no previous infarct is noted. Gated SPECT analysis: The gated ejection fraction is noted to be 64%. Conclusion: Normal pharmacologic myocardial perfusion stress test. Preserved ejection fraction.
[2019-02-11 12:39] LABS: D-Dimer Quantitative (DVT/PE) 0.27 FEU/ug/m (0.27-0.49)
--- NOTE | 2019-02-11 13:50 | DS.PCM_ITS ---
<Lauren García - Last Filed: 02/11/19 14:01> Discharge Date and Diagnosis Date of Admission: 02/10/19 Date of Discharge: 02/11/19 - Primary Discharge Diagnosis Active and Suspected Problems (Last Reviewed 02/10/19 @ 20:46 by Justin Patel MD) 1. Non-cardiac chest pain, ACS ruled out 2. Hypertension 3. History of seizure disorder 4. Tobacco dependence 5. Hypoglycemia, resolved - Secondary Discharge Diagnosis Chronic Problems (Last Reviewed 02/10/19 @ 20:46 by Justin Patel MD) Seizure disorder (Chronic) Hospital Course and Treatment Imaging Results: Diagnostic Data Chest X-Ray 02/10/19 18:36 IMPRESSION: Normal x-ray examination of the chest. Electronically Signed: Morgan Johnston MD at 19:27 EDT Tel , Service support , Operations: None Procedures: Stress test Summary of Care Provided: The patient is a 48 year old F admitted 02/10/19 due to chest pain. 1. Non-cardiac chest pain, ACS ruled out-troponin negative. EKG without ST-T changes. D-dimer negative. Chest x-ray normal. Suspect possible anxiety component related to current symptoms versus musculoskeletal in nature. Patient reports she had a cardiac workup 2 years ago at [facility] which was unremarkable. Follow up with PCP in 1 Week. 2. Hypertension-she reports significant weight loss and no longer needs blood pressure medication. Blood pressure stable. 3. History of seizure disorder-reported by patient. Not on preventative regimen. 4. Tobacco dependence-encouraged smoking cessation. 5. Hypoglycemia, resolved General: Alert, Oriented x3, Cooperative HEENT: Atraumatic, PERRLA, EOMI, Normocephalic Neck: Supple, No JVD, Negative Carotid Bruits Lungs: Clear to auscultation, Normal air movement Cardiovascular: Regular rate, No murmurs Abdomen: Bowel Sounds Present, Soft, Non Tender Extremities: No edema, Capillary Refill Less than 3 Seconds Skin: No rashes, No breakdown Musculoskeletal: No Tenderness to Palpation of Joints or Extremities Neurological: Cranial nerves II-XII grossly intact Psych/Mental Status: Normal Affect, Appropriate Patient seen and examined prior to discharge. Physical assessment as noted above. Patient is stable for discharge with follow up recommendations as noted above. This patient was seen by LAUREN Ford under the supervision of Dr. Gardner. - Physical Exam Vital Signs Temp Pulse Resp BP Pulse Ox 98.0 F 99 18 158/92 H 99 02/11/19 12:00 02/11/19 12:00 02/11/19 12:00 02/11/19 12:00 02/11/19 12:00 Oxygen Delivery Method Room Air Weight: 195 lb 5.273 oz Body Mass Index (BMI) 35.7 Intake and Output for Last 24 Hours 02/09/19 02/10/19 02/11/19 23:59 23:59 23:59 Intake Total 512 / 512 487 / 487 Balance 512 / 512 487 / 487 Laboratory Tests Past 24 Hrs 02/10/19 02/10/19 02/10/19 18:00 18:00 21:00 WBC 9.0 RBC 4.45 Hgb 12.7 Hct 38.9 MCV 87.4 MCH 28.5 MCHC 32.6 RDW 13.2 RDW Differential 42.4 Plt Count 418 MPV 9.1 Immature Gran % (Auto) 0.200 Neut % (Auto) 62.5 Lymph % (Auto) 26.1 Dukes % (Auto) 7.2 Eos % (Auto) 3.7 Baso % (Auto) 0.3 Absolute Neuts (auto) 5.6 Absolute Lymphs (auto) 2.34 Total Counted Not Reportable PT INR APTT D-Dimer Quant (PE/DVT) Sodium 141 Potassium 3.7 Chloride 106 Carbon Dioxide 29.0 Anion Gap 6 BUN 10 Creatinine 0.93 Estim Creat Clear Calc 59.15 Est GFR (MDRD) Af Amer 83 Est GFR (MDRD) Non-Af 69 BUN/Creatinine Ratio 10.8 Glucose 68 L Calcium 8.8 Troponin I < 0.015 < 0.015 Triglycerides Cholesterol LDL Cholesterol VLDL Cholesterol HDL Cholesterol 02/11/19 02/11/19 02/11/19 00:15 05:56 05:56 WBC RBC Hgb Hct MCV MCH MCHC RDW RDW Differential Plt Count MPV Immature Gran % (Auto) Neut % (Auto) Lymph % (Auto) Dukes % (Auto) Eos % (Auto) Baso % (Auto) Absolute Neuts (auto) Absolute Lymphs (auto) Total Counted PT 12.6 INR 1.0 APTT 29.9 D-Dimer Quant (PE/DVT) Sodium 139 Potassium 3.7 Chloride 107 Carbon Dioxide 27.0 Anion Gap 5 BUN 14 Creatinine 0.92 Estim Creat Clear Calc 59.79 Est GFR (MDRD) Af Amer 85 Est GFR (MDRD) Non-Af 70 BUN/Creatinine Ratio 15.3 Glucose 101 Calcium 8.5 Troponin I < 0.015 Triglycerides 77 Cholesterol 135 LDL Cholesterol 69 VLDL Cholesterol 15 HDL Cholesterol 51 02/11/19 02/11/19 05:56 05:56 WBC 8.8 RBC 4.24 Hgb 11.8 L Hct 37.6 MCV 88.7 MCH 27.8 MCHC 31.4 L RDW 13.5 RDW Differential 43.7 Plt Count 366 MPV 8.8 Immature Gran % (Auto) 0.200 Neut % (Auto) 59.3 Lymph % (Auto) 27.7 Dukes % (Auto) 8.8 Eos % (Auto) 3.5 Baso % (Auto) 0.5 Absolute Neuts (auto) 5.2 Absolute Lymphs (auto) 2.45 Total Counted Not Reportable PT INR APTT D-Dimer Quant (PE/DVT) 0.27 Sodium Potassium Chloride Carbon Dioxide Anion Gap BUN Creatinine Estim Creat Clear Calc Est GFR (MDRD) Af Amer Est GFR (MDRD) Non-Af BUN/Creatinine Ratio Glucose Calcium Troponin I Triglycerides Cholesterol LDL Cholesterol VLDL Cholesterol HDL Cholesterol POC Glucose 02/11/19 02/11/19 02/11/19 11:48 06:09 02:18 POC Glucose 77 111 H 108 02/10/19 21:33 POC Glucose 90 Discharge Diet: No Restrictions Discharge Activity: Return to Normal Activity Call your doctor if you observe: Shortness of breath, Dizziness, Fainting spells, Chest pain Home Medications: Medications to take at Discharge NK 02/10/19 Primary Care Physician: Jhoana Son NP-C [Primary Care Provider] - Please follow up with your Primary Care Physician in: 1 Week Disposition: Home Minutes spent on discharge:: 35 Patient Condition:: Stable Medical Necessity - Tobacco Use Smoking Status: Current every day smoker Tobacco Use: Cigarettes Meaningful Use Info Meaningful Use Diagnoses (Choose all that apply): None applicable <JjBeaufort - Last Filed: 02/12/19 16:07> Discharge Date and Diagnosis - Secondary Discharge Diagnosis Chronic Problems (Last Reviewed 02/10/19 @ 20:46 by Justin Patel MD) Seizure disorder (Chronic) Hospital Course and Treatment Summary of Care Provided: The patient is a 48 year old F past medical history of nicotine dependence, seizure disorder, 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 Patient came in with chest pain, EKG was unremarkable. D-dimer was negative. Chest x-ray was unremarkable. Patient had reproducible anterior chest wall tenderness. She underwent stress test that was negative. She was recommended to take some NSAIDs and topical preparation for the musculoskeletal chest pain Subjective: On the day of discharge, patient was seen and examined. Denied any new complaint. Complains of anterior chest wall discomfort is worse with movement. - Physical Exam General: Alert, Oriented x3, Cooperative, No apparent distress HEENT: Atraumatic, PERRLA, EOMI, Normocephalic Oral: Moist Mucosa Neck: Supple Lungs: Clear to auscultation, Normal air movement, - - Tenderness over the anterior chest wall Cardiovascular: Regular rate, Regular Rhythm, Normal S1, Normal S2, No murmurs Abdomen: Bowel Sounds Present, Soft, Non Tender, Non-Distended, No Hepato- splenomegaly Extremities: No edema Skin: No rashes Musculoskeletal: No Tenderness to Palpation of Joints or Extremities Lymphatic: No Cervical, Supraclavicular, or Inguinal Adenopathy Neurological: Cranial nerves II-XII grossly intact Psych/Mental Status: Normal Affect, Appropriate Vital Signs Temp Pulse Resp BP Pulse Ox 98.0 F 99 18 158/92 H 99 02/11/19 12:00 02/11/19 12:00 02/11/19 12:00 02/11/19 12:00 02/11/19 12:00 Oxygen Delivery Method Room Air Weight: 88.6 kg Body Mass Index (BMI) 35.7 Intake and Output for Last 24 Hours 02/10/19 02/11/19 02/12/19 23:59 23:59 23:59 Intake Total 512 / 512 487 / 487 Balance 512 / 512 487 / 487 Code Visit OBSV E&M: 19803 Observation care discharge
== END 2019-02-11 11:36 | disposition home or self-care (01) ==
LOC: ED 18:32 → PCU 20:36
PROVIDERS: Nurse Practitioner Family; Admitting Provider Hospitalist; Emergency Provider Emergency Medicine; Family Provider Nurse Practitioner Family; PCP Nurse Practitioner Family; Referring Provider Hospitalist; Visit Provider Internal Medicine
DX: R07.89 Other chest pain (principal); I10 Essential (primary) hypertension; R06.09 Other forms of dyspnea; E78.5 Hyperlipidemia, unspecified; Z82.49 Family history of ischemic heart disease and other diseases of the circulatory system; E16.2 Hypoglycemia, unspecified; F17.210 Nicotine dependence, cigarettes, uncomplicated; R94.31 Abnormal electrocardiogram [ECG] [EKG]
CPT/HCPCS: 36415; 71045; 78452; 80048; 80061; 82962; 84484; 85025; 85379; 85610; 85730; 93005; 93017; 96360; 96361; 99218; 99285; 99406; A9500; A4216; G0378; J2785; J7799

== ENCOUNTER 2019-11-30 10:21 | Emergency (ER) | payer MEDICAID, SELFPAY ==
[2019-02-10 21:10] VITALS: BMI 35.7
[2019-11-30 10:23] VITALS: BP 148/59; PULSE 67; RESP 17; TEMP 36.6; O2SAT 100; BMI 38.4
--- NOTE | 2019-11-30 10:43 | CT_ITS ---
STUDY: CT ABDOMEN AND PELVIS WITH CONTRAST REASON FOR EXAM: Female, 49 years old. RLQ PAIN, N/V RADIATION DOSAGE (If Supplied By Facility): CTDIvol = ( 16.45 ) mGy, DLP = ( 1197.34 ) mGycm TECHNIQUE: Transaxial images were obtained from the dome of the diaphragm to the symphysis pubis with oral contrast. Oral and amp;amp; IV Gastrografin and amp;amp; 100mL Isovue-300 was administered. Sagittal and coronal images were reconstructed. Individualized dose optimization techniques were used for this CT. COMPARISON: None. FINDINGS: The visualized lung bases are unremarkable. The visualized portions of the heart are within normal limits. There is decreased attenuation of the liver consistent with steatosis. Normal gallbladder and extrahepatic biliary system. Normal spleen. Normal pancreas. Normal bilateral adrenal glands. There is a 2 mm calculus in the midportion of the right ureter causing minimal right hydronephrosis. There is also evidence of a 2 mm calculus in the distal one third of the right ureter. Normal left kidney. There is a small hiatal hernia. Normal small intestine. Normal colon. The appendix is visualized and appears normal. Normal abdominal aorta. Normal inferior vena cava. Normal retroperitoneum. Normal urinary bladder. Normal abdominal wall. Normal osseous structures. CT/Abdomen/Pelvis WITH Contrast IMPRESSION: 2 small calculi are seen in the mid and distal one third of the right ureter as described with mild right hydronephrosis. Electronically Signed: Maxi Nuñez, at 13:02 EST , Service support ,
--- NOTE | 2019-11-30 10:45 | ED.VISSUMM ---
- ER Visit Summary Date of Service: 11/30/19 Chief Complaint: Abdominal pain History of Present Illness: The patient is a 49 F who presents with right lower quadrant abdominal pain that began last night. Patient states her pain is sharp. Patient states the pain started in her right lower quadrant. Patient states the pain is better with lying still and putting pressure on her abdomen. Patient states her pain is worse with any movement. Patient states her pain is worse when she had a bump in the road. Patient admits to decreased appetite. Patient states her last meal was 6 PM last evening. Patient denies any dysuria or hematuria. Patient states her last menstrual period was 10 years ago. Physical Examination: Vital signs are stable. Patient is afebrile. Patient is in no acute distress. Oral mucosa is pink and moist. Neck is supple. Trachea is midline. There is no JVD. Heart was regular rate and rhythm. Lungs are clear and equal bilateral. Abdomen is soft. Bowel sounds are normal. There is right lower quadrant tenderness. There is no rebound or guarding. Psoas sign was negative. Obturator sign was negative. Rovsing sign was negative. Cranial nerves II through XII are intact. There are no focal motor or sensory deficits noted. Test Results: CBC, comprehensive metabolic profile, urinalysis, and serum hCG were obtained were all within normal limits. CT scan of the abdomen and pelvis was obtained. There is a 2 mm calculus in the midportion of the right ureter and a 2 mm calculus in the distal third of the right ureter. There is hydronephrosis. This was interpreted by the radiologist and reviewed by myself. Emergency Department Course and Treatment: Patient was given IV fluids, Zofran, and morphine. Patient was given a repeat dose of morphine. Patient was given a prescription for tramadol. Patient states she is able to tolerate that. Patient was instructed to follow-up with a urologist in 5 to 7 days. Patient was instructed to return if worse in any way. Patient understood and was agreeable with the plan. All questions were answered. Disposition: Discharge home Impression: Right ureteral calculi This note was generated with [employer] software. It may contain incorrect words, spelling, and punctuation that were not noted in review of the chart prior to signing ED Disposition - Plan for ED Patient: Disposition: Home or Assisted Living Diagnosis: Right ureteral calculus Instructions: KIDNEY STONE w/ Colic Prescriptions: traMADol [Ultram] 50 mg PO Q6H PRN PRN #12 tab PRN Reason: Pain Score 4-10/10 Prescription Printed Referrals: Jhoana Son NP-C [Primary Care Provider] - 3-5 Days Kianna Burgess MD [STAFF PHYSICIAN] - 5-7 Days
[2019-11-30] MEDS: Morphine 4 MG/ML Syringe IV ×2 (11:09→13:43)
[2019-11-30] MEDS: Ondansetron 4 MG/2 ML Vial IV (11:09)
[2019-11-30] MEDS: 0.9% Normal Saline 1,000 ML 1000 ML IV (11:09)
[2019-11-30 11:21] LABS: Color, Urine Yellow (Yellow); Glucose, Dipstick Normal (Normal); Ketone-Dipstick Negative (Negative); Leukocyte Esterase-Dipstick Negative /ul (Negative); Nitrite-Dipstick Negative (Negative); Occult Blood-Urine Negative /ul (Negative); Protein-Dipstick Negative (Negative); Urine Bilirubin Dipstick Negative (Negative); Urine Clarity Sl. Cloudy (Clear); Urine Urobilinogen Normal (Normal)
[2019-11-30 11:33] LABS: Bacteria 1+ /hpf (None Seen); Mucous, Urine RARE /hpf (<or=2+); Red Blood Cells-Urine 0-5 SEEN /hpf (0-5); Squamous Epithelial Cells - UA 0-5 SEEN /hpf (5-10); White Blood Cells 0-5 SEEN /hpf (0-5); Yeast-Urine 1+ /hpf (None Seen)
[2019-11-30 11:50] LABS: Absolute Neutrophil Count 5.4 X10^3/uL (2.0-7.7); Basophil% 1.2 % (0-1); Eosinophil# 0.44 X10^3/uL; Eosinophils% 5.1 % (0-5); Hematocrit 40.9 % (37-47); Lymphocyte % 22.1 % (19-41); Mean Corp Hgb Conc 31.8 g/dL (32-36); Mean Corpuscular Hgb 28.4 pg (27.0-32.0); Mean Corpuscular Volume 89.5 fL (81-99); Mean Platelet Vol. 9.5 fl (6.2-12.0); Monocyte# 0.63 X10^3/uL; Monocyte% 7.3 % (0-10); NRBC Flagged by Analyzer 0 % (0-5); Neutrophil # 5.43 X10^3/uL (2.7-7.7); Neutrophil % 63.1 % (47-70); Platelet Count 310 K/mm3 (150-450); RBC Distribution Width CV 12.6 % (11.6-14.6); RBC Distribution Width SD 41.4 fl (35.1-43.9); Red Blood Count 4.57 M/mm3 (4.2-5.4); White Blood Count 8.6 K/mm3 (4.4-11.0)
[2019-11-30 11:58] LABS: ALB/GLOB Ratio 1.1 RATIO (0.9-2.4); AST(SGOT) 9 U/L (15-37); Alanine Aminotransfer ALT/SGPT 27 U/L (13-56); Albumin, Serum 3.9 g/dL (3.2-5.0); Alkaline Phosphatase 94 U/L (45-117); Anion Gap 4 (5-15); BUN 18 mg/dL (7-18); BUN/Creat Ratio 18.5 RATIO (10-20); Calcium,Total 9.2 mg/dL (8.5-10.1); Chloride 104 mmol/L (98-107); Creatinine, Serum 0.97 mg/dL (0.55-1.02); EST Glomerular Filtration Rate 65 mL/min (>60); Est Glom Filt Rate - Afr Amer 79 mL/min (>60); Globulin 3.7 g/dL (2.2-4.2); Glucose 84 mg/dL (74-106); Potassium 4.3 mmol/L (3.5-5.1); Protein, Total 7.6 g/dL (6.4-8.2); Sodium Level 138 mmol/L (136-145)
[2019-11-30 11:59] LABS: Internal QC Validated? YES +Cl - CLEAR BKGD; Pregnancy, Serum, hCG Quali. NEGATIVE Negative
[2019-11-30 14:10] VITALS: BP 97/59; PULSE 53; RESP 14; O2SAT 97
== END 2019-11-30 14:11 | disposition home or self-care (01) ==
PROVIDERS: Emergency Provider Emergency Medicine; PCP Nurse Practitioner Family
DX: N13.2 Hydronephrosis with renal and ureteral calculous obstruction (principal); I10 Essential (primary) hypertension; E66.9 Obesity, unspecified; Z72.0 Tobacco use; Z79.899 Other long term (current) drug therapy
CPT/HCPCS: 74177; 80053; 81001; 84703; 85025; 96361; 96374; 96375; 96376; 99284; J7030; Q9967; A4216; J2405

== ENCOUNTER 2019-12-01 17:34 | Emergency (ER) | payer MEDICAID, SELFPAY ==
[2019-11-30 10:23] VITALS: BMI 38.4
[2019-12-01 17:35] VITALS: BP 149/84; PULSE 96; RESP 16; TEMP 36.1; O2SAT 99; BMI 38.4
[2019-12-01 18:10] VITALS: O2SAT 98
--- NOTE | 2019-12-01 18:30 | EKG12_ITS ---
Test Reason : SOB Blood Pressure : / mmHG Vent. Rate : 077 BPM Atrial Rate : 077 BPM P-R Int : 142 ms QRS Dur : 078 ms QT Int : 344 ms P-R-T Axes : 070 043 -34 degrees QTc Int : 389 ms Normal sinus rhythm T wave abnormality, consider inferior ischemia Abnormal ECG Confirmed by BRADLEY ORTEGA ([id number]), design editor GLENN PAYNE ([id number]) on 12/03/2019 12:58:06 PM Referred By: VARUN Confirmed By:BRADLEY ORTEGA
--- NOTE | 2019-12-01 18:31 | RAD_ITS ---
STUDY: X-RAY CHEST REASON FOR EXAM: Female, 49 years old. Pt was cleaning with bleach today and started feeling SOB. TECHNIQUE: Single AP portable upright view of the chest. COMPARISON: Portable AP upright chest x-ray February 10, 2019. FINDINGS: Vague 1.5 cm nodular density now projects in the right apex between the anterior right second and third ribs. The left lung is clear and expanded. There is no demonstrated pleural abnormality. Normal size heart. Normal mediastinum and tripp. Normal visualized pulmonary arteries. Normal visualized aortic arch and descending thoracic aorta. Normal visualized thoracic spine. Normal visualized ribs, clavicles, and shoulders. There is no demonstrated abnormality of the visualized soft tissue structures of the upper abdomen. RAD/Chest 1 View (Portable) IMPRESSION: Vague nodular density versus artifact projecting at the right apex. One might consider upright PA and lateral views and/or apical lordotic view of the chest to confirm that this a real finding. Electronically Signed: Gus Jason MD at 18:57 EST , Service support ,
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
--- NOTE | 2019-12-01 18:35 | ED.DEP ---
ED Disposition - Plan for ED Patient: Disposition: Home or Assisted Living Prescriptions: Prednisone [Deltasone] 40 mg PO DAILY 5 Days tab Prescription Printed Albuterol Inhaler [Ventolin Hfa] 1 - 2 puff INHALATION Q4H PRN PRN #1 inhaler PRN Reason: Wheezing Prescription Printed Referrals: Jhoana Son, OPERATIONAL COMMUNICATION CHIEF-C [Primary Care Provider] - 3-5 Days if not improving Additional Instructions: Inhaler as needed for wheezing. Prednisone daily as needed for wheezing. Follow-up if not improving. Obviously ventilate out your bathroom very well. Stay away from these type of chemicals in the future.
[2019-12-01] MEDS: predniSONE 20 MG Tablet 60 MG PO (18:46)
[2019-12-01 18:57] VITALS: PULSE 88; RESP 26; RESP 28; O2SAT 97
[2019-12-01] MEDS: Albuterol 2.5 MG/3 ML VIAL.NEB. INHALATION (18:57)
[2019-12-01] MEDS: Ipratropium/Albuterol Sulfate 3 ML AMPUL.NEB INHALATION (18:57)
[2019-12-01 19:56] VITALS: O2SAT 97
[2019-12-01 21:07] VITALS: RESP 20; O2SAT 98
== END 2019-12-01 21:08 | disposition home or self-care (01) ==
PROVIDERS: Emergency Provider Emergency Medicine; PCP Nurse Practitioner Family
DX: J98.01 Acute bronchospasm (principal); Z77.098 Contact with and (suspected) exposure to other hazardous, chiefly nonmedicinal, chemicals; I10 Essential (primary) hypertension; F32.9 Major depressive disorder, single episode, unspecified; F41.9 Anxiety disorder, unspecified; Z72.0 Tobacco use; Z79.899 Other long term (current) drug therapy; Z87.442 Personal history of urinary calculi
CPT/HCPCS: 71045; 93005; 94640; 99251; 99283; G0463

== ENCOUNTER 2020-02-13 16:50 | Emergency (ER) | payer MEDICAID, SELFPAY ==
[2020-02-13 16:51] VITALS: BP 133/75; PULSE 78; RESP 16; TEMP 36.6; O2SAT 98; BMI 41.8
[2020-02-13 17:01] VITALS: BP 133/75; PULSE 78; RESP 16; TEMP 36.6; O2SAT 98
--- NOTE | 2020-02-13 17:13 | CT_ITS ---
STUDY: CT ABDOMEN AND PELVIS WITHOUT CONTRAST REASON FOR EXAM: Female, 49 years old. PT STATED RLQ PAIN, FEVER RADIATION DOSAGE (If Supplied By Facility): CTDIvol = ( 20.21 ) mGy, DLP = ( 1080.70 ) mGycm TECHNIQUE: Transaxial images were obtained from the dome of the diaphragm to the symphysis pubis without oral contrast, and without intravenous contrast. Sagittal and coronal images were reconstructed. Individualized dose optimization techniques were used for this CT. COMPARISON: 11/30/2019 FINDINGS: The visualized lung bases are unremarkable. The visualized portions of the heart are within normal limits. Normal liver. Normal gallbladder and extrahepatic biliary system. Normal spleen. Normal pancreas. Normal bilateral adrenal glands. Normal right kidney. Normal left kidney. Normal visualized stomach. Normal small intestine. There are multiple colonic diverticula consistent with diverticulosis. An inflamed diverticulum is suspected involving the medial ascending colon as seen on image 78 of series 2. The appendix is visualized and appears normal. Normal abdominal aorta. Normal inferior vena cava. Normal retroperitoneum. Normal urinary bladder. Normal abdominal wall. Normal osseous structures. CT/Abdomen/Pelvis without Cont IMPRESSION: Probable inflamed diverticulum along the medial aspect of the ascending colon. Normal appendix. Electronically Signed: Morgan Johnston MD at 19:10 EDT Tel , Service support ,
[2020-02-13 18:01] LABS: Absolute Lymphocyte Count 2.55 X10^3/uL (0.83-4.51); Basophil# 0.07 X10^3/uL; Basophil% 0.7 % (0-1); Eosinophil# 0.46 X10^3/uL; Eosinophils% 4.7 % (0-5); Hematocrit 37.8 % (37-47); Hemoglobin 12.4 g/dL (12.0-15.0); Lymphocyte # 2.55 X10^3/ul (4.0); Lymphocyte % 25.8 % (19-41); Mean Corp Hgb Conc 32.8 g/dL (32-36); Mean Corpuscular Hgb 29.3 pg (27.0-32.0); Mean Corpuscular Volume 89.4 fL (81-99); Mean Platelet Vol. 9.4 fl (6.2-12.0); Monocyte# 0.81 X10^3/uL; Monocyte% 8.2 % (0-10); NRBC Flagged by Analyzer 0 % (0-5); Neutrophil # 5.95 X10^3/uL (2.7-7.7); Neutrophil % 60.1 % (47-70); Platelet Count 326 K/mm3 (150-450); RBC Distribution Width CV 13.1 % (11.6-14.6); Red Blood Count 4.23 M/mm3 (4.2-5.4); White Blood Count 9.9 K/mm3 (4.4-11.0)
[2020-02-13] MEDS: 0.9% Normal Saline 1,000 ML 1000 ML IV (18:10)
[2020-02-13] MEDS: Ondansetron 4 MG/2 ML Vial IV (18:11)
[2020-02-13] MEDS: Morphine 4 MG/ML Syringe IV (18:11)
--- NOTE | 2020-02-13 18:14 | ED.VISSUMM ---
- ER Visit Summary Date of Service: 02/13/20 Chief Complaint: Right side abdominal pain History of Present Illness: The patient is a 49 F who has right-sided abdominal pain. Started today. She states that the sharp and burning sensation in her right side that radiates into her back. She has had nausea and vomiting. Denies diarrhea or constipation. Her urine has been darker and more frequent but denies hematuria or dysuria. Her temperature yesterday was 100.6 ?F. She denies a cough. No history of abdominal surgeries except for C-sections. She tried Tylenol without any relief. She does have a history of kidney stones in the past. Physical Examination: Vital signs reviewed. HEENT exam unremarkable. Heart is regular rate and rhythm without murmurs. Lungs are clear to auscultation. Abdomen is soft with tenderness on palpation of the right side into the back. No guarding or rebound tenderness. Extremities reveal no edema. Skin exam normal. Neurologic exam normal. Test Results: Laboratory studies unremarkable except for creatinine 1.58. CAT scan of the abdomen and pelvis reveals an inflamed diverticulum in the ascending colon Emergency Department Course and Treatment: Patient's work-up reveals diverticulitis with an inflamed diverticulum. I will treat her with Cipro and Flagyl. I will give her naproxen for home for pain. She will follow-up with her PCP Treatment Plan: [] Disposition: Discharge Impression: Diverticulitis This note was generated with [employer] dictation software. It may contain incorrect words, spelling, and punctuation that were not noted in review of the chart prior to signing ED Disposition - Plan for ED Patient: Disposition: Home or Assisted Living Instructions: ED Diverticulitis Prescriptions: Ciprofloxacin [Cipro] 500 mg PO BID #14 tab Transmission Status: Pending to [facility] metroNIDAZOLE [Flagyl] 500 mg PO Q8H #21 tab Transmission Status: Pending to [facility] Naproxen [Naprosyn] 500 mg PO BID PRN #20 tab Transmission Status: Pending to [facility] Referrals: Jhoana Son, DRISS-C [Primary Care Provider] -
[2020-02-13 18:22] LABS: ALB/GLOB Ratio 1.1 RATIO (0.9-2.4); AST(SGOT) 10 U/L (15-37); Alanine Aminotransfer ALT/SGPT 21 U/L (13-56); Albumin, Serum 3.8 g/dL (3.2-5.0); Alkaline Phosphatase 91 U/L (45-117); Anion Gap 5 (5-15); BUN 22 mg/dL (7-18); BUN/Creat Ratio 13.9 RATIO (10-20); Calcium,Total 9.4 mg/dL (8.5-10.1); Chloride 108 mmol/L (98-107); Creatinine, Serum 1.58 mg/dL (0.55-1.02); EST Glomerular Filtration Rate 37 mL/min (>60); Est Glom Filt Rate - Afr Amer 45 mL/min (>60); Estimated Creatinine Clearance 34.44 ml/min; Globulin 3.6 g/dL (2.2-4.2); Glucose 107 mg/dL (74-106); Lipase 118 U/L (73-393); Potassium 3.9 mmol/L (3.5-5.1); Protein, Total 7.4 g/dL (6.4-8.2); Sodium Level 141 mmol/L (136-145)
[2020-02-13 19:00] VITALS: BP 135/87; PULSE 51; RESP 16; TEMP 37.2; O2SAT 97
[2020-02-13 19:02] LABS: Mucous, Urine 0 SEEN /hpf (<or=2+); Red Blood Cells-Urine 0 SEEN /hpf (0-5); White Blood Cells 0 SEEN /hpf (0-5)
[2020-02-13 19:04] LABS: Color, Urine Yellow (Yellow); Glucose, Dipstick Normal (Normal); Ketone-Dipstick 5 mg/dl (Negative); Leukocyte Esterase-Dipstick 25 /ul (Negative); Nitrite-Dipstick Negative (Negative); Occult Blood-Urine 25 /ul (Negative); Protein-Dipstick 15 mg/dl (Negative); Specific Gravity, Urine 1.025 (1.002-1.030); Urine Clarity Sl. Cloudy (Clear); Urine Urobilinogen 1 mg/dl (Normal)
[2020-02-13 19:13] LABS: Urine Bilirubin Dipstick 1 mg/dL (Negative)
[2020-02-13 19:25] LABS: Bacteria 1+ /hpf (None Seen); Calcium Oxalate Crystals Ur 1+ /hpf (<or=2+); Squamous Epithelial Cells - UA 5-10 SEEN /hpf (5-10)
[2020-02-13] MEDS: metroNIDAZOLE 500 MG Tablet PO (20:04)
[2020-02-13] MEDS: Ciprofloxacin 500 MG Tablet PO (20:04)
[2020-02-13 20:05] VITALS: BP 137/88; PULSE 53; RESP 16; RESP 17; TEMP 37.1; O2SAT 97
== END 2020-02-13 20:06 | disposition home or self-care (01) ==
PROVIDERS: Emergency Provider Emergency Medicine; PCP Nurse Practitioner Family
DX: K57.32 Diverticulitis of large intestine without perforation or abscess without bleeding (principal); I10 Essential (primary) hypertension; Z72.0 Tobacco use; Z79.899 Other long term (current) drug therapy; Z87.442 Personal history of urinary calculi
CPT/HCPCS: 74176; 80053; 81001; 83690; 85025; 96361; 96374; 96375; 99284; J7030; A4216; J2405

== ENCOUNTER 2020-09-09 08:41 | Outpatient (RCR) | payer MEDICAID, SELFPAY ==
[2020-09-09 08:45] VITALS: BP 126/81; PULSE 63; RESP 20; TEMP 36.6; BMI 39.0
[2020-09-09 09:46] VITALS: BP 139/49; PULSE 47
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
== END 2020-09-10 23:59 ==
LOC: WC 08:41
PROVIDERS: PCP Nurse Practitioner Family; Visit Provider Family Medicine
DX: T21.32XD Burn of third degree of abdominal wall, subsequent encounter (principal); G40.909 Epilepsy, unspecified, not intractable, without status epilepticus; Z79.1 Long term (current) use of non-steroidal anti-inflammatories (NSAID); Z79.899 Other long term (current) drug therapy; Z82.3 Family history of stroke; Z82.49 Family history of ischemic heart disease and other diseases of the circulatory system; Z88.5 Allergy status to narcotic agent
CPT/HCPCS: 11042; 11045; 99213; G0463

== ENCOUNTER 2020-09-16 07:57 | Outpatient (RCR) | payer MEDICAID, SELFPAY ==
[2020-09-11 00:41] VITALS: BP 139/49; PULSE 47; RESP 20; TEMP 36.6
== END 2020-10-10 23:59 ==
LOC: WC 07:57
PROVIDERS: PCP Nurse Practitioner Family; Visit Provider Family Medicine
DX: Z09 Encounter for follow-up examination after completed treatment for conditions other than malignant neoplasm (principal)

== ENCOUNTER 2020-09-20 15:58 | Outpatient (RCR) | payer MEDICAID, SELFPAY | END 2020-09-20 19:00 | disposition home or self-care (01) | LOC: PT 15:58 | PROVIDERS: PCP Nurse Practitioner Family; Referring Provider Nurse Practitioner Family; Visit Provider Nurse Practitioner Family | DX: R56.9 Unspecified convulsions (principal); R29.898 Other symptoms and signs involving the musculoskeletal system | CPT/HCPCS: 97110; 97162 ==

== ENCOUNTER 2020-10-14 11:02 | Outpatient (RCR) | payer MEDICAID, SELFPAY ==
[2020-10-11 00:37] VITALS: BP 139/49; PULSE 47; RESP 20; TEMP 36.6
[2020-10-14 11:22] VITALS: BP 137/74; PULSE 81; RESP 18; TEMP 36; BMI 39.0
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
== END 2020-11-10 23:59 ==
LOC: WC 11:02
PROVIDERS: PCP Nurse Practitioner Family; Visit Provider Family Medicine
DX: T21.32XD Burn of third degree of abdominal wall, subsequent encounter (principal); G90.9 Disorder of the autonomic nervous system, unspecified; X19.XXXA Contact with other heat and hot substances, initial encounter
CPT/HCPCS: 97597

== ENCOUNTER 2021-08-31 15:00 | Emergency (ER) | payer MEDICAID, SELFPAY ==
--- NOTE | 2021-08-31 14:53 | EKG12_ITS ---
Test Reason : CP Blood Pressure : / mmHG Vent. Rate : 057 BPM Atrial Rate : 057 BPM P-R Int : 140 ms QRS Dur : 078 ms QT Int : 414 ms P-R-T Axes : 064 021 -10 degrees QTc Int : 402 ms Sinus bradycardia T wave abnormality, consider anterolateral ischemia Abnormal ECG Confirmed by ROSE POWERS, TAMIKA ([id number]), state editor BENITO OLSEN ([id number]) on 09/05/2021 8:37:44 AM Referred By: Confirmed By:TAMIKA ROSE MD
[2021-08-31 15:01] VITALS: BP 129/103; PULSE 55; RESP 18; TEMP 36.4; O2SAT 97; BMI 39.6
[2021-08-31 15:29] LABS: Absolute Lymphocyte Count 1.88 X10^3/uL (0.83-4.51); Absolute Neutrophil Count 6.7 X10^3/uL (2.0-7.7); Basophil# 0.11 X10^3/uL; Basophil% 1.1 % (0-1); Eosinophil# 0.43 X10^3/uL; Eosinophils% 4.4 % (0-5); Hematocrit 45.1 % (37-47); Hemoglobin 14.4 g/dL (12.0-15.0); Lymphocyte # 1.88 X10^3/ul (0.83-4.51); Lymphocyte % 19.2 % (19-41); Mean Corp Hgb Conc 31.9 g/dL (32-36); Mean Corpuscular Hgb 28.7 pg (27.0-32.0); Mean Platelet Vol. 9.4 fl (6.2-12.0); Monocyte# 0.59 X10^3/uL; NRBC Flagged by Analyzer 0 % (0-5); Neutrophil # 6.68 X10^3/uL (2.7-7.7); Neutrophil % 68.2 % (47-70); Platelet Count 373 K/mm3 (150-450); RBC Distribution Width CV 12.5 % (11.6-14.6); RBC Distribution Width SD 41.2 fl (35.1-43.9); Red Blood Count 5.01 M/mm3 (4.2-5.4); White Blood Count 9.8 K/mm3 (4.4-11.0)
[2021-08-31 15:47] LABS: Anion Gap 5 (5-15); BUN 18 mg/dL (7-18); BUN/Creat Ratio 19.3 RATIO (10-20); Calcium,Total 9.5 mg/dL (8.5-10.1); Chloride 107 mmol/L (98-107); Creatinine, Serum 0.93 mg/dL (0.55-1.02); EST Glomerular Filtration Rate 68 mL/min (>60); Est Glom Filt Rate - Afr Amer 82 mL/min (>60); Estimated Creatinine Clearance 57.24 ml/min; Glucose 106 mg/dL (74-106); Potassium 4.1 mmol/L (3.5-5.1); Sodium Level 138 mmol/L (136-145); Troponin-I HS 4 pg/mL (3.0-54.0)
[2021-08-31 16:01] VITALS: PULSE 45; RESP 14; O2SAT 98
[2021-08-31] MEDS: Aspirin 81 MG TAB.CHEW 324 MG PO (16:03)
[2021-08-31] MEDS: Morphine 4 MG/ML Syringe IV (16:03)
--- NOTE | 2021-08-31 16:15 | RAD_ITS ---
STUDY: X-RAY CHEST REASON FOR EXAM: Female, 51 years old. chest pain, cough TECHNIQUE: AP COMPARISON: 12/01/2019. FINDINGS: EKG leads project over the chest. The lungs are clear and expanded. There is no demonstrated pleural abnormality. Normal size heart. Normal mediastinum and tripp. Normal visualized pulmonary arteries. Normal visualized aortic arch and descending thoracic aorta. Normal visualized thoracic spine. Normal visualized ribs, clavicles, and shoulders. There is no demonstrated abnormality of the visualized soft tissue structures of the upper abdomen. RAD/Chest 1 View (Portable) IMPRESSION: Nonacute portable x-ray examination of the chest. Electronically Signed: Jesus Freeman MD ([place]) at 16:30 EDT , Service support ,
--- NOTE | 2021-08-31 16:26 | EDS_ITS ---
HPI History of Present Illness Chief Complaint: Chest Pain Narrative Narrative: Patient increasing chest aching since yesterday. No radicular symptoms. Worsened this morning. Productive cough for 3 days diarrhea yesterday reports headache. Covid infection this past June. Nonvaccinated. No sick contacts. Reports had severe fatigue symptoms in June. History of hypertension hypercholesterolemia, seizure disorder. Denies cardiac history. Denies fevers. Denies dyspnea. CVD Risk Factors: Positive for Hypertension and Hypercholesterolemia [facility] Medical History Anemia Depression Epilepsy Hypertension Tremor Home Medications diclofenac sodium 50 mg PO BID PRN PRN 11/30/19 [History Last Taken Unknown] estradiol-norethindrone acet 1 tab PO DAILY 11/30/19 [History Last Taken Unknown] lisinopril-hydrochlorothiazide 1 tab PO DAILY 11/30/19 [History Last Taken Unknown] sertraline 100 mg PO DAILY 11/30/19 [History Last Taken Unknown] tramadol 50 mg PO Q6H PRN PRN #12 tab 11/30/19 [Rx Last Taken Unknown] trazodone 150 mg PO QHS 11/30/19 [History Last Taken Unknown] albuterol sulfate 1 - 2 puff INHALATION Q4H PRN PRN #1 inhaler 12/01/19 [Rx Last Taken Unknown] ciprofloxacin HCl 500 mg PO BID #14 tab 02/13/20 [Rx Last Taken Unknown] metronidazole 500 mg PO Q8H #21 tab 02/13/20 [Rx Last Taken Unknown] naproxen 500 mg PO BID PRN #20 tab 02/13/20 [Rx Last Taken Unknown] ascorbic acid (vitamin C) 500 mg PO 09/09/20 [History Last Taken Unknown] atorvastatin 40 mg PO QHS 09/09/20 [History Last Taken Unknown] buspirone 7.5 mg PO DAILY 09/09/20 [History Last Taken Unknown] clonazepam 1 mg PO 09/09/20 [History Last Taken Unknown] ferrous sulfate 325 09/09/20 [History Last Taken Unknown] lacosamide 150 mg PO BID 09/09/20 [History Last Taken Unknown] lamotrigine 100 mg PO 09/09/20 [History Last Taken Unknown] metoprolol tartrate 25 mg PO 09/09/20 [History Last Taken Unknown] oxycodone-acetaminophen 1 ea PO PRN PRN 09/09/20 [History Last Taken Unknown] sertraline 100 mg PO 09/09/20 [History Last Taken Unknown] zonisamide 100 QHS 09/09/20 [History Last Taken Unknown] Allergy/AdvReac Type Severity Reaction Status Date / Time codeine Allergy Hives Verified 08/31/21 15:03 hydrocodone Allergy Hives Verified 08/31/21 15:03 lacosamide [From Vimpat] Allergy Other Verified 08/31/21 15:03 oxycodone Allergy Hives Verified 08/31/21 15:03 fentanyl AdvReac Other Verified 08/31/21 15:03 Family History Other CVA (cerebral vascular accident) Heart disease Social History Smoking Status: Former smoker alcohol intake: never ROS ROS ED Constitutional Constitutional ED: Denies chills, fever(s) or sweats Eyes Eyes: Denies change in vision ENT ENT ED: Denies dysphagia or sore throat Cardiovascular Cardiovascular: Reports chest pain; Denies leg edema, palpitations or racing heartbeat Respiratory/Chest Respiratory/Chest: Reports cough; Denies dyspnea or dyspnea on exertion Gastrointestinal Gastrointestinal: Reports diarrhea; Denies abdominal pain, nausea or vomiting Genitourinary Genitourinary ED: Denies dysuria, hematuria or urinary frequency Musculoskeletal Musculoskeletal: Denies back pain, extremity pain or neck pain Integumentary Denies rash or wounds Neurologic Neurologic: Reports headache(s); Denies paresthesias or weakness EXAM Physical Exam Const Vital Signs: 08/31/21 15:01 08/31/21 15:33 08/31/21 16:01 Temperature 97.6 F L Temperature Source Temporal Pulse Rate 55 L 45 L Respiratory Rate 18 14 Respiratory Effort Normal Non-Labored Blood Pressure 129/103 H Blood Pressure Mean 111 Pulse Ox 97 98 Oxygen Delivery Method Room Air Room Air 08/31/21 16:55 08/31/21 17:45 08/31/21 18:19 Temperature Temperature Source Pulse Rate 47 L 49 L 47 L Respiratory Rate 17 14 Respiratory Effort Blood Pressure 154/67 H 161/93 H 149/86 H Blood Pressure Mean 96 115 Pulse Ox 94 97 98 Oxygen Delivery Method Room Air Room Air Positive well nourished and well developed Constitutional Narrative: Uncomfortable, nontoxic. General Appearance ED: well developed HEENT Reports moist mucous membranes normocephalic and atraumatic Eyes PERRL, EOMs intact bilaterally and conjunctivae normal General Eye ED: Yes normal appearance of both eyes Neck no lymphadenopathy and supple General: Negative for tenderness Chest Wall Chest: Negative for tenderness Resp normal respiratory effort and normal air movement Effort and Inspection: symmetric chest movement; Negative for respiratory distress Cardio regular rate, regular rhythm and no murmurs Peripheral Pulses: pulses 2+ throughout GI normal to inspection, nondistended, normoactive bowel sounds and non-tender Palpation: Negative for guarding or rebound tenderness present Back/Spine no CVA tenderness and no thoracic nor lumbar tenderness Extremity normal to inspection General Extremety ED: Negative for edema or tenderness General Extremity: Negative for edema Neuro oriented x3 and no sensory deficits noted Sensorium / Orientation: awake and alert Skin no rashes or lesions noted and no wounds Heart Score History: Slightly/Non-Suspicious ECG: Nonspecific Repolarization Age: >45 - <65 years Risk Factors: 1 or 2 Risk Factors Troponin: </= Normal Limit Score: 3 MDM MDM MDM Narrative Medical decision making narrative: Patient with T wave inversion on EKG. Pitting aching sensation no pressure. She was given aspirin and morphine x1. Cardiac work-up negative with high sensitive troponin x2. Chest x-ray negative. With her cough for 3 days Covid testing obtained also negative. Discussed bronchitis symptoms viral in nature. Chest pains with a heart score of 3. Patient will follow-up with her PCP further testing as an outpatient. Signs and symptoms discussed return. All questions were answered. Lab Data Attestation: I reviewed the patient's lab results. Labs: Laboratory Results - last 24 hr 08/31/21 08/31/21 08/31/21 15:17 15:17 17:27 WBC 9.8 RBC 5.01 Hgb 14.4 Hct 45.1 MCV 90.0 MCH 28.7 MCHC 31.9 L RDW Std Deviation 41.2 RDW Coeff of Enrique 12.5 Plt Count 373 MPV 9.4 Immature Gran % (Auto) 1.100 H Neut % (Auto) 68.2 Lymph % (Auto) 19.2 [place] % (Auto) 6.0 Eos % (Auto) 4.4 Baso % (Auto) 1.1 H Absolute Neuts (auto) 6.7 Absolute Lymphs (auto) 1.88 Nucleated RBC % 0 Sodium 138 Potassium 4.1 Chloride 107 Carbon Dioxide 26.0 Anion Gap 5 BUN 18 Creatinine 0.93 Estim Creat Clear Calc 57.24 Est GFR (MDRD) Af Amer 82 Est GFR (MDRD) Non-Af 68 BUN/Creatinine Ratio 19.3 Glucose 106 Calcium 9.5 Troponin I High Sens 4 6 Radiography Chest X-Ray - ED: 1 View, Read by ED Physician and Read by Radiologist Diagnostic Testing: Clinical Impression(s) from Imaging Studies Chest X-Ray 08/31/21 16:15 IMPRESSION: Nonacute portable x-ray examination of the chest. Electronically Signed: Jesus Freeman MD ([place]) at 16:30 EDT , Service support , EKG Initial EKG: Attestation: I personally reviewed and interpreted this EKG as follows: Comments: Sinus rhythm 57, no ST changes, T wave inversions in inferior anterior lateral leads. Discharge Plan Triage Chief Complaint: Chest Pain ED Provider: Bay Lewis Dx/Rx/DC Orders Clinical Impression: Chest pain, Bronchitis Instructions: ED Bronchitis, No Antibiotic (Adult), ED Chest Pain, Uncertain Cause Prescriptions: No Action trazodone 50 MG tablet 150 mg PO QHS RF: 0 lisinopril-hydrochlorothiazide 20-12.5 MG tablet 1 tab PO DAILY RF: 0 sertraline 100 MG tablet 100 mg PO DAILY RF: 0 diclofenac sodium 50 MG tablet,delayed release (DR/EC) 50 mg PO BID PRN PRN (Reason: Pain Or Fever) RF: 0 estradiol-norethindrone acet 0.5-0.1 MG tablet 1 tab PO DAILY RF: 0 tramadol 50 MG tablet 50 mg PO Q6H PRN PRN (Reason: Pain Score 4-10/10) Qty: 12 RF: 0 albuterol sulfate 1 INHALER inhaler 1 - 2 puff inhalation Q4H PRN PRN (Reason: Wheezing) Qty: 1 RF: 0 metronidazole 500 MG tablet 500 mg PO Q8H Qty: 21 RF: 0 ciprofloxacin HCl 500 MG tablet 500 mg PO BID Qty: 14 RF: 0 naproxen 500 MG tablet 500 mg PO BID PRN Qty: 20 RF: 0 atorvastatin 40 MG tablet 40 mg PO QHS RF: 0 buspirone 5 MG tablet 7.5 mg PO DAILY RF: 0 sertraline 100 MG tablet 100 mg PO RF: 0 clonazepam 1 MG tablet 1 mg PO RF: 0 zonisamide 100 MG capsule 100 QHS RF: 0 oxycodone-acetaminophen 1 EACH tablet 1 ea PO PRN PRN (Reason: Wound Care) RF: 0 ascorbic acid (vitamin C) 500 MG tablet 500 mg PO RF: 0 ferrous sulfate 325 MG tablet 325 RF: 0 lamotrigine 100 MG tablet 100 mg PO RF: 0 metoprolol tartrate 25 MG tablet 25 mg PO RF: 0 lacosamide 150 MG tablet 150 mg PO BID RF: 0 Primary Care Provider: Jhoana Son NP Referrals: Jhoana Son NP, [facility] [Primary Care Provider] - 3-5 Days Activity Restrictions/Additional Instructions: Covid negative. Cardiac work-up with enzymes negative. EKG with T wave inversions inferior anterior lateral. You need likely a stress echocardiogram as an outpatient. Follow-up with your doctor to schedule this. Return if any worsening symptoms. Disposition Disposition: Home, Self Care Discharge Date/Time: 08/31/21 18:19
[2021-08-31 16:55] VITALS: BP 154/67; PULSE 47; RESP 17; O2SAT 94
[2021-08-31 17:45] VITALS: BP 161/93; PULSE 49; RESP 14; O2SAT 97
[2021-08-31 17:52] LABS: Troponin-I HS 6 pg/mL (3.0-54.0)
[2021-08-31 18:19] VITALS: BP 149/86; PULSE 47; O2SAT 98
== END 2021-08-31 18:19 | disposition home or self-care (01) ==
PROVIDERS: Emergency Provider Emergency Medicine; PCP Nurse Practitioner Family
DX: J40 Bronchitis, not specified as acute or chronic (principal); R07.9 Chest pain, unspecified; R19.7 Diarrhea, unspecified; Z20.822 Contact with and (suspected) exposure to COVID-19; G40.909 Epilepsy, unspecified, not intractable, without status epilepticus; E78.00 Pure hypercholesterolemia, unspecified; I10 Essential (primary) hypertension; D64.9 Anemia, unspecified; F32.A Depression, unspecified; Z79.899 Other long term (current) drug therapy; Z86.16 Personal history of COVID-19; Z87.891 Personal history of nicotine dependence
CPT/HCPCS: 71045; 80048; 84484; 85025; 87426; 93005; 96361; 96374; 99284; J7030; A4216

== ENCOUNTER 2022-02-22 15:52 | Emergency (ER) | payer MEDICAID, SELFPAY ==
[2022-02-22 15:53] VITALS: BP 183/96; PULSE 87; RESP 16; TEMP 35.6; O2SAT 97; BMI 36.2
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
--- NOTE | 2022-02-22 16:08 | RAD_ITS ---
EXAM: XR RIGHT KNEE COMPLETE, 4 OR MORE VIEWS : 1970 CLINICAL INDICATION: injury TECHNIQUE: Four or more views of the right knee. This report was created using [employer] report generation technology. COMPARISON: None. FINDINGS: BONES/JOINTS: Unremarkable. No acute fracture. No subluxation. Normal alignment. Preservation of the joint space. No sclerotic or destructive changes observed. SOFT TISSUES: Unremarkable. No soft tissue swelling or gas. No radiopaque foreign body. RAD/Knee 4 or More Views IMPRESSION: Negative right knee x-rays. at 1703 Reported and signed by: German Foster MD Electronically Signed: German Foster MD at 17:02 EDT ,
--- NOTE | 2022-02-22 16:08 | RAD_ITS ---
EXAM: XR RIGHT RIBS AND AP CHEST, 3 OR MORE VIEWS : 1970 CLINICAL INDICATION: injury/pain TECHNIQUE: Frontal and oblique views of the right ribs and frontal view of the chest. This report was created using [employer] report generation technology. COMPARISON: None. FINDINGS: LUNGS AND PLEURAL SPACES: Unremarkable. No consolidation or edema. No pneumothorax. No effusion. HEART: Unremarkable. Cardiac silhouette not enlarged. MEDIASTINUM: Central airways and mediastinal contour are unremarkable. BONES/JOINTS: Unremarkable. No evidence of displaced rib fractures. RAD/Ribs Uni Min 3V w/PA Chest IMPRESSION: Negative chest and right ribs series. at 1705 Reported and signed by: German Foster MD Electronically Signed: German Foster MD at 17:03 EDT ,
--- NOTE | 2022-02-22 16:10 | EKG12_ITS ---
Test Reason : SEIZURE Blood Pressure : / mmHG Vent. Rate : 043 BPM Atrial Rate : 043 BPM P-R Int : 116 ms QRS Dur : 080 ms QT Int : 450 ms P-R-T Axes : 048 018 -21 degrees QTc Int : 380 ms Marked sinus bradycardia ST & T wave abnormality, consider anterior ischemia Abnormal ECG Confirmed by LUCILLE POWERS, YELENA ([id number]), electronic news gathering editor BENITO OLSEN ([id number]) on 02/26/2022 1:52:03 PM Referred By: Confirmed By:SEVEN ADKINS MD
--- NOTE | 2022-02-22 16:16 | EDS_ITS ---
HPI History of Present Illness Chief Complaint: Seizure Informant: patient and spouse/S.O. Onset/Context/Timing Onset: Today Narrative Narrative: Patient had a breakthrough seizure today. She has epilepsy and takes lamotrigine, zonisamide, clonazepam. Zonisamide: 300 mg nightly Clonazepam: 3 mg nightly Lamotrigine: 150 every morning, 100 with lunch, 150 nightly To 's knowledge she has not missed any of her medications, has had no illness recently, she tends to have breakthrough seizures on average once a month for the past year, she had one 1 week ago patient and had not had one in the 2 months prior to that. Yesterday did not witness it, but the patient told him that she tripped and fell, hitting her head and has not felt right since then, she also injured her right ribs, her right knee, and her right ankle. She has been able to ambulate since then. He was at work today, child called him and said that mom had another seizure today. She currently is postictal as they arrived to the emergency department. She is on no anticoagulants. She has an antihypertensive but has not taken it for 4 months or so according to the because blood pressure has been up and down. [facility] Medical History Anemia Depression Epilepsy Hypertension Tremor Home Medications sertraline 200 mg PO DAILY 11/30/19 [History Last Taken Unknown] ascorbic acid (vitamin C) 500 mg PO DAILY 09/09/20 [History Last Taken Unknown] atorvastatin 40 mg PO QHS 09/09/20 [History Last Taken Unknown] buspirone 7.5 mg PO BID 09/09/20 [History Last Taken Unknown] clonazepam 1 mg PO TID 09/09/20 [History Last Taken Unknown] ferrous sulfate 325 mg PO DAILY 09/09/20 [History Last Taken Unknown] lamotrigine 150 mg PO TID 09/09/20 [History Last Taken Unknown] zonisamide 300 mg PO QHS 09/09/20 [History Last Taken Unknown] cephalexin 500 mg PO Q6 #28 capsule 02/22/22 [Rx Last Taken Unknown] Allergy/AdvReac Type Severity Reaction Status Date / Time codeine Allergy Hives Verified 02/22/22 15:54 hydrocodone Allergy Hives Verified 02/22/22 15:54 lacosamide [From Vimpat] Allergy Other Verified 02/22/22 15:54 oxycodone Allergy Hives Verified 02/22/22 15:54 fentanyl AdvReac Other Verified 02/22/22 15:54 Family History Other CVA (cerebral vascular accident) Heart disease Social History Smoking Status: Former smoker alcohol intake: never ROS ROS ED Review of Systems ROS Unobtainable: due to mental status EXAM Physical Exam Const Vital Signs: 02/22/22 15:53 Temperature 96.1 F L Temperature Source Temporal Pulse Rate 87 Respiratory Rate 16 Blood Pressure 183/96 H Blood Pressure Mean 125 Pulse Ox 97 Oxygen Delivery Method Room Air Positive well nourished and well developed Constitutional Narrative: History/exam somewhat limited due to patient being postictal General Appearance ED: well developed and NAD HEENT Negative for trauma or tenderness Eyes PERRL and EOMs intact bilaterally Neck full ROM and supple Chest Wall inspection of chest normal Chest Narrative: Tender right lateral rib cage without crepitance or subcutaneous emphysema. Equal chest rise bilaterally, equal breath sounds bilaterally. Sternum nontender. No deformities or flail. GI normal to inspection, nondistended, normoactive bowel sounds, soft to palpation and non-tender Back/Spine normal to inspection Thoracic Spine / Upper Back: paraspinal muscle tenderness Lumbar Spine / Lower Back: ROM limited and straight leg raise negative bilaterally Extremity normal to inspection, full ROM and no pedal edema Extremity Narrative: Several small contusions anterior right distal knee with tenderness including the tibial tuberosity. No effusion. Mild tenderness lateral malleolus of the right ankle. Neuro no sensory deficits noted Neuro Narrative: Patient is alert and awake, somnolent, alert to person and her . She was told where she was, and is redirectable. Moving all 4 extremities. Sensorium / Orientation: alert Motor Exam: strength 5/5 throughout and clonus absent Deep Tendon Reflexes: Rt Patellar (L4): 2+, Lt Patellar (L4): 2+, Rt Ankle (S1): 2+ and Lt Ankle (S1): 2+ Deep Tendon Reflexes Back: Rt Patellar (L4): 2+, Lt Patellar (L4): 2+, Rt Ankle (S1): 2+ and Lt Ankle (S1): 2+ Plantar Reflex: Downgoing: bilateral Psych mental status grossly normal and thought process normal Skin no rashes or lesions noted and no wounds MDM MDM MDM Narrative Medical decision making narrative: Work-up consisted of negative imaging, blood work unremarkable, urine is positive for infection. This was in for culture she was treated empirically with IV Rocephin while she was monitored here for several hours, she recovered, she did have a headache for which we gave her Tylenol, and aside from the soreness she had from her fall yesterday, her mental status recovered to baseline and she was able to ambulate. She had no further seizure activity. My suspicion is that the urinary tract infection is causing her to have a breakthrough seizure, since she is at her baseline neurologically and is doing well I feel discharging her home with close outpatient follow-up with her neurologist at [facility] who she was already supposed to call for follow-up appointment anyway, is reasonable. Discussed all this with the patient and her they are comfortable with this overall plan. We will start her on Keflex for empiric treatment of urinary tract infection. Lab Data Attestation: I reviewed the patient's lab results. Labs: Laboratory Results - last 24 hr 02/22/22 02/22/22 02/22/22 16:15 16:15 17:05 WBC 7.8 RBC 5.04 Hgb 14.8 Hct 44.9 MCV 89.1 MCH 29.4 MCHC 33.0 RDW Std Deviation 40.0 RDW Coeff of Enrique 12.3 Plt Count 359 MPV 9.9 Immature Gran % (Auto) 0.400 Neut % (Auto) 62.0 Lymph % (Auto) 27.2 [place] % (Auto) 6.9 Eos % (Auto) 2.7 Baso % (Auto) 0.8 Absolute Neuts (auto) 4.9 Absolute Lymphs (auto) 2.13 Nucleated RBC % 0 Sodium 139 Potassium 3.7 Chloride 108 H Carbon Dioxide 27.0 Anion Gap 4 L BUN 11 Creatinine 1.05 H Estim Creat Clear Calc 50.70 Est GFR (MDRD) Af Amer 71 Est GFR (MDRD) Non-Af 59 L BUN/Creatinine Ratio 10.5 Glucose 101 Calcium 9.1 Troponin I High Sens 8 Urine Color Yellow Urine Clarity Cloudy Urine pH 7.0 Ur Specific [place] 1.015 Urine Protein 30 H Urine Glucose (UA) Normal Urine Ketones Negative Urine Occult Blood 10 H Urine Nitrite Positive H Urine Bilirubin Negative Urine Urobilinogen Normal Ur Leukocyte Esterase 500 H Urine RBC 0-5 SEEN Urine WBC 25-50 SEEN Ur Squamous Epith Cells 5-10 SEEN Calcium Oxalate Crystal RARE Urine Bacteria 2+ Urine Mucus 0 SEEN Radiography Diagnostic Testing: Clinical Impression(s) from Imaging Studies Brain CT 02/22/22 16:08 IMPRESSION: Negative head/brain CT without intravenous contrast. Individualized dose optimization techniques were used for this CT. at 1641 Reported and signed by: German Foster MD Electronically Signed: German Foster MD at 16:39 EDT , Knee X-Ray 02/22/22 16:08 IMPRESSION: Negative right knee x-rays. at 1703 Reported and signed by: German Foster MD Electronically Signed: German Foster MD at 17:02 EDT , Ribs w/Chest X-Ray 02/22/22 16:08 IMPRESSION: Negative chest and right ribs series. at 1705 Reported and signed by: German Foster MD Electronically Signed: German Foster MD at 17:03 EDT , Ankle X-Ray 02/22/22 16:36 IMPRESSION: No osseous abnormalities. There is soft tissue swelling present. at 1704 Reported and signed by: German Foster MD Electronically Signed: German Foster MD at 17:03 EDT , EKG Initial EKG: Attestation: I personally reviewed and interpreted this EKG as follows: Interpretation: No Acute Injury Pattern and Sinus Bradycardia Discharge Plan Triage Chief Complaint: Seizure Other Complaint: Head Injury ED Provider: David Rivas Dx/Rx/DC Orders Clinical Impression: Urinary tract infection, Seizure disorder, Breakthrough seizure Instructions: ED Seizure, Recurrent (Adult), ED CYSTITIS Female Adult Prescriptions: New cephalexin [cephalexin] 500 MG capsule 500 mg PO Q6 Qty: 28 RF: 0 Continued sertraline 100 MG tablet 200 mg PO DAILY RF: 0 atorvastatin 40 MG tablet 40 mg PO QHS RF: 0 buspirone 5 MG tablet 7.5 mg PO BID RF: 0 clonazepam 1 MG tablet 1 mg PO TID RF: 0 zonisamide 100 MG capsule 300 mg PO QHS RF: 0 ascorbic acid (vitamin C) 500 MG tablet 500 mg PO DAILY RF: 0 ferrous sulfate 325 MG tablet 325 mg PO DAILY RF: 0 lamotrigine 100 MG tablet 150 mg PO TID RF: 0 Primary Care Provider: Jhoana Son NP Referrals: Jhoana Son NP, CAMPAIGN MARKETING MANAGER-C [Primary Care Provider] - (And/your your neurologist after the weekend) Disposition Disposition: Home, Self Care
[2022-02-22 16:23] LABS: Absolute Lymphocyte Count 2.13 X10^3/uL (0.83-4.51); Absolute Neutrophil Count 4.9 X10^3/uL (2.0-7.7); Basophil# 0.06 X10^3/uL; Basophil% 0.8 % (0-1); Eosinophil# 0.21 X10^3/uL; Eosinophils% 2.7 % (0-5); Hematocrit 44.9 % (37-47); Hemoglobin 14.8 g/dL (12.0-15.0); Lymphocyte # 2.13 X10^3/ul (0.83-4.51); Lymphocyte % 27.2 % (19-41); Mean Corpuscular Hgb 29.4 pg (27.0-32.0); Mean Corpuscular Volume 89.1 fL (81-99); Mean Platelet Vol. 9.9 fl (6.2-12.0); Monocyte# 0.54 X10^3/uL; Monocyte% 6.9 % (0-10); NRBC Flagged by Analyzer 0 % (0-5); Neutrophil # 4.85 X10^3/uL (2.7-7.7); Platelet Count 359 K/mm3 (150-450); RBC Distribution Width CV 12.3 % (11.6-14.6); Red Blood Count 5.04 M/mm3 (4.2-5.4); White Blood Count 7.8 K/mm3 (4.4-11.0)
--- NOTE | 2022-02-22 16:36 | RAD_ITS ---
EXAM: XR RIGHT ANKLE COMPLETE, 3 OR MORE VIEWS : 1970 CLINICAL INDICATION: injury TECHNIQUE: Frontal, lateral and oblique views of the right ankle. This report was created using [employer] report generation technology. COMPARISON: None. FINDINGS: BONES/JOINTS: Unremarkable. No acute fracture. No subluxation. Normal alignment. Preservation of the joint space. No sclerotic or destructive changes observed. SOFT TISSUES: There is soft tissue swelling over the lateral malleolus. No radiopaque foreign body. RAD/Ankle min 3 Views IMPRESSION: No osseous abnormalities. There is soft tissue swelling present. at 1704 Reported and signed by: German Foster MD Electronically Signed: German Foster MD at 17:03 EDT ,
[2022-02-22 17:11] LABS: Anion Gap 4 (5-15); BUN 11 mg/dL (7-18); BUN/Creat Ratio 10.5 RATIO (10-20); Calcium,Total 9.1 mg/dL (8.5-10.1); Chloride 108 mmol/L (98-107); Creatinine, Serum 1.05 mg/dL (0.55-1.02); EST Glomerular Filtration Rate 59 mL/min (>60); Est Glom Filt Rate - Afr Amer 71 mL/min (>60); Glucose 101 mg/dL (74-106); Potassium 3.7 mmol/L (3.5-5.1); Sodium Level 139 mmol/L (136-145); Troponin-I HS 8 pg/mL (3.0-54.0)
[2022-02-22 17:14] LABS: Mucous, Urine 0 SEEN /hpf (<or=2+)
[2022-02-22 17:17] LABS: Color, Urine Yellow (Yellow); Glucose, Dipstick Normal (Normal); Ketone-Dipstick Negative (Negative); Leukocyte Esterase-Dipstick 500 /ul (Negative); Nitrite-Dipstick Positive (Negative); Occult Blood-Urine 10 /ul (Negative); Protein-Dipstick 30 mg/dl (Negative); Specific Gravity, Urine 1.015 (1.002-1.030); Urine Bilirubin Dipstick Negative (Negative); Urine Clarity Cloudy (Clear); Urine Urobilinogen Normal (Normal)
[2022-02-22 17:41] LABS: White Blood Cells 25-50 SEEN /hpf (0-5)
[2022-02-22 17:42] LABS: Bacteria 2+ /hpf (None Seen); Red Blood Cells-Urine 0-5 SEEN /hpf (0-5); Squamous Epithelial Cells - UA 5-10 SEEN /hpf (5-10)
[2022-02-22 17:43] LABS: Calcium Oxalate Crystals Ur RARE /hpf (<or=2+)
[2022-02-22 18:29] VITALS: PULSE 42; RESP 13
[2022-02-22] MEDS: Ceftriaxone 1 GM/50 ML BAG IV (18:29)
[2022-02-22] MEDS: LORazepam 2 MG/ML Syringe 1 MG IV (19:20)
--- NOTE | 2022-02-22 19:21 | NURSING ---
staff responded to rquest for help from family. pt c/o chest pain sternal sharp going into right arm. pt whole body shaking 15 seconds of pt not responding to staff or family. Doctor notified and responded to room pt grabbing chest c/o chest pain continue whole body shaking responded verbally with staff and family. 1mg IV Ativan given per doctor order. pt no longer having full body tremors eyes open staring at ceiling not responding to staff or family. staff at bedside.
--- NOTE | 2022-02-22 19:34 | EKG12_ITS ---
Test Reason : CP Blood Pressure : / mmHG Vent. Rate : 044 BPM Atrial Rate : 044 BPM P-R Int : 164 ms QRS Dur : 092 ms QT Int : 468 ms P-R-T Axes : 051 048 -03 degrees QTc Int : 400 ms Marked sinus bradycardia Nonspecific ST abnormality Abnormal ECG Confirmed by LUCILLE POWERS, YELENA ([id number]), content editor BENITO OLSEN ([id number]) on 02/26/2022 1:54:20 PM Referred By: STACI Confirmed By:SEVEN ADKINS MD
[2022-02-22 20:00] VITALS: BP 124/75; RESP 17
[2022-02-22 20:10] LABS: Troponin-I HS 6 pg/mL (3.0-54.0)
[2022-02-22] MEDS: Acetaminophen 500 MG Tablet 1000 MG PO (20:50)
[2022-02-22 21:56] VITALS: BP 97/68; PULSE 40; RESP 12
[2022-02-22 22:23] LABS: Troponin-I HS 7 pg/mL (3.0-54.0)
[2022-02-22 23:07] VITALS: BP 127/70; PULSE 47; RESP 14
== END 2022-02-22 23:08 | disposition home or self-care (01) ==
PROVIDERS: Emergency Provider Emergency Medicine; PCP Nurse Practitioner Family; Visit Provider Emergency Medicine
DX: N39.0 Urinary tract infection, site not specified (principal); G40.909 Epilepsy, unspecified, not intractable, without status epilepticus; R00.1 Bradycardia, unspecified; R07.9 Chest pain, unspecified; S80.01XA Contusion of right knee, initial encounter; S09.90XA Unspecified injury of head, initial encounter; S99.911A Unspecified injury of right ankle, initial encounter; W18.09XA Striking against other object with subsequent fall, initial encounter; I10 Essential (primary) hypertension; Z79.899 Other long term (current) drug therapy; Z87.891 Personal history of nicotine dependence
CPT/HCPCS: 70450; 71101; 73564; 73610; 80048; 81001; 84484; 85025; 87086; 87088; 87186; 93005; 96365; 96375; 99285; A4216

== ENCOUNTER 2023-01-16 15:34 | Emergency (ER) | payer MEDICARE, MEDICAID, SELFPAY ==
[2023-01-16 15:34] VITALS: BP 142/108; PULSE 62; RESP 18; TEMP 36.2; O2SAT 96; BMI 37.9
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
[2023-01-16] MEDS: Ondansetron 4 MG/2 ML Vial IV (16:10)
[2023-01-16] MEDS: 0.9% Normal Saline 1,000 ML 1000 ML IV (16:11)
[2023-01-16 16:12] LABS: Absolute Lymphocyte Count 1.12 X10^3/uL (0.83-4.51); Absolute Neutrophil Count 10.2 X10^3/uL (2.0-7.7); Basophil# 0.08 X10^3/uL; Basophil% 0.7 % (0-1); Eosinophil# 0.07 X10^3/uL; Eosinophils% 0.6 % (0-5); Hematocrit 45.3 % (37-47); Lymphocyte # 1.12 X10^3/ul (0.83-4.51); Lymphocyte % 9.2 % (19-41); Mean Corp Hgb Conc 33.1 g/dL (32-36); Mean Corpuscular Hgb 30.7 pg (27.0-32.0); Mean Corpuscular Volume 92.8 fL (81-99); Mean Platelet Vol. 9.7 fl (6.2-12.0); Monocyte# 0.62 X10^3/uL; Monocyte% 5.1 % (0-10); NRBC Flagged by Analyzer 0 % (0-5); Neutrophil # 10.24 X10^3/uL (2.7-7.7); Neutrophil % 83.8 % (47-70); Platelet Count 384 K/mm3 (150-450); RBC Distribution Width SD 41.1 fl (35.1-43.9); Red Blood Count 4.88 M/mm3 (4.2-5.4); White Blood Count 12.2 K/mm3 (4.4-11.0)
[2023-01-16] MEDS: Aspirin 81 MG TAB.CHEW 324 MG PO (16:12)
--- NOTE | 2023-01-16 16:15 | ED.RN ---
PATIENT STATED SHE IS HAVING A SEIZURE. PATIENT EYES ROLLED BACK INTO HER HEAD AND BODY BEGAN SHAKING. HR 55 AT THE TIME. PATIENT ABLE TO ANSWER QUESTIONS APPROPRIATELY. DR. MICHELLE NOTIFIED
--- NOTE | 2023-01-16 16:15 | RAD_ITS ---
STUDY: X-RAY CHEST REASON FOR EXAM: Female, 52 years old. Chest pain TECHNIQUE: Single AP portable view of the chest. COMPARISON: Comparison is made with prior study dated February 22, 2022. FINDINGS: EKG electrodes are seen. Calcified bilateral hilar lymph nodes. The lungs are clear. There is no demonstrated pleural abnormality. Normal size heart. Normal mediastinum and tripp. Normal visualized pulmonary arteries. Normal visualized aortic arch and descending thoracic aorta. There are degenerative changes of the visualized thoracic spine. Normal visualized ribs, clavicles, and shoulders. There is no demonstrated abnormality of the visualized soft tissue structures of the upper abdomen. RAD/Chest 1 View (Portable) IMPRESSION: No acute abnormality is seen. Electronically Signed: Maxi Nuñez MD at 16:32 EST ,
[2023-01-16 16:21] VITALS: BP 156/75; PULSE 73
[2023-01-16] MEDS: Nitroglycerin SL (ED/IMG/CATH) 0.4 MG TABLET SL (16:21)
[2023-01-16 16:31] LABS: Anion Gap 7 (5-15); BUN 14 mg/dL (7-18); BUN/Creat Ratio 12.3 RATIO (10-20); Chloride 102 mmol/L (98-107); Creatinine, Serum 1.14 mg/dL (0.55-1.02); EST Glomerular Filtration Rate 53 mL/min (>60); Est Glom Filt Rate - Afr Amer 65 mL/min (>60); Estimated Creatinine Clearance 46.18 ml/min; Glucose 116 mg/dL (74-106); Potassium 3.8 mmol/L (3.5-5.1); Sodium Level 138 mmol/L (136-145); Troponin-I HS (w/2H Reflex) 5 pg/mL (3.0-54.0)
[2023-01-16 16:34] VITALS: BP 136/92; PULSE 56; RESP 13; O2SAT 95
[2023-01-16 17:24] LABS: Valproic Acid (Depakene) Level 57 ug/mL (50-100)
[2023-01-16 17:34] VITALS: BP 126/79; PULSE 50; RESP 18; O2SAT 94
[2023-01-16 18:07] LABS: Reflex Troponin-HS? (from REC) Y
[2023-01-16 18:34] VITALS: BP 144/80; PULSE 46; RESP 20; O2SAT 95
[2023-01-16 18:44] LABS: Troponin-I HS 6 pg/mL (3.0-54.0)
[2023-01-16] MEDS: Morphine 4 MG/ML Syringe IV (19:28)
[2023-01-16 19:34] VITALS: BP 133/82; PULSE 46; RESP 18; O2SAT 95
== END 2023-01-16 20:03 | disposition home or self-care (01) ==
PROVIDERS: Emergency Provider Emergency Medicine; PCP Student in an Organized Health Care Education/Training Program; Visit Provider Emergency Medicine
DX: R07.9 Chest pain, unspecified (principal); G40.909 Epilepsy, unspecified, not intractable, without status epilepticus; R06.02 Shortness of breath; I10 Essential (primary) hypertension; Z87.891 Personal history of nicotine dependence; R11.2 Nausea with vomiting, unspecified; E66.9 Obesity, unspecified; R35.0 Frequency of micturition; R19.7 Diarrhea, unspecified; Z20.822 Contact with and (suspected) exposure to COVID-19
CPT/HCPCS: 71045; 80048; 80164; 84484; 85025; 87428; 93005; 96361; 96374; 96375; 99284; J7030; A4216; J2405

== ENCOUNTER 2023-04-23 13:37 | Emergency (ER) | payer MEDICARE, MEDICAID, SELFPAY ==
[2023-04-23] VITALS (11 sets, daily range): BP systolic 122–146; BP diastolic 77–97; PULSE 50–66; RESP 12–28; TEMP 36.2; O2SAT 91–99; BMI 36.6
[2023-04-23 13:58] LABS: Absolute Lymphocyte Count 2.07 X10^3/uL (0.83-4.51); Absolute Neutrophil Count 5.2 X10^3/uL (2.0-7.7); Basophil# 0.07 X10^3/uL; Basophil% 0.9 % (0-1); Eosinophil# 0.11 X10^3/uL; Eosinophils% 1.4 % (0-5); Hemoglobin 15.4 g/dL (12.0-15.0); Lymphocyte # 2.07 X10^3/ul (0.83-4.51); Lymphocyte % 25.4 % (19-41); Mean Corp Hgb Conc 32.1 g/dL (32-36); Mean Corpuscular Hgb 31.1 pg (27.0-32.0); Mean Platelet Vol. 9.8 fl (6.2-12.0); Monocyte# 0.65 X10^3/uL; NRBC Flagged by Analyzer 0 % (0-5); Neutrophil % 63.8 % (47-70); Platelet Count 343 K/mm3 (150-450); RBC Distribution Width CV 11.6 % (11.6-14.6); Red Blood Count 4.95 M/mm3 (4.2-5.4); White Blood Count 8.1 K/mm3 (4.4-11.0)
[2023-04-23 14:19] LABS: Anion Gap 12 (5-15); BUN 15 mg/dL (7-18); BUN/Creat Ratio 11.3 RATIO (10-20); Calcium,Total 9.9 mg/dL (8.5-10.1); Chloride 101 mmol/L (98-107); Creatinine, Serum 1.33 mg/dL (0.55-1.02); EST Glomerular Filtration Rate 45 mL/min (>60); Est Glom Filt Rate - Afr Amer 54 mL/min (>60); Estimated Creatinine Clearance 39.58 ml/min; Glucose 89 mg/dL (74-106); Potassium 3.7 mmol/L (3.5-5.1); Prolactin 16.4 ng/mL; Sodium Level 138 mmol/L (136-145)
[2023-04-23 14:24] LABS: Lactic Acid 6.2 mmol/L (0.4-1.9)
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
[2023-04-23 15:12] LABS: Valproic Acid (Depakene) Level 71 ug/mL (50-100)
--- NOTE | 2023-04-23 16:08 | EKG12_ITS ---
Test Reason : CP Blood Pressure : / mmHG Vent. Rate : 051 BPM Atrial Rate : 051 BPM P-R Int : 140 ms QRS Dur : 086 ms QT Int : 432 ms P-R-T Axes : 060 007 -35 degrees QTc Int : 398 ms Sinus bradycardia T wave abnormality, consider inferior ischemia T wave abnormality, consider anterior ischemia Abnormal ECG Confirmed by LUCILLE POWERS, YELENA ([id number]), newspaper editor BENITO OLSEN ([id number]) on 04/26/2023 10:00:00 A M Referred By: CARMEN Confirmed By:SEVEN ADKINS MD
[2023-04-23] MEDS: LORazepam 2 MG/ML Syringe IV (16:37)
[2023-04-23 16:59] LABS: Troponin-I HS (w/2H Reflex) 10 pg/mL (3.0-54.0)
[2023-04-23 17:06] LABS: Lactic Acid 2.1 mmol/L (0.4-1.9)
[2023-04-23 17:55] LABS: Reflex Lactate? Y
[2023-04-23 18:34] LABS: Reflex Troponin-HS? (from REC) Y
[2023-04-23 19:10] LABS: Troponin-I HS 10 pg/mL (3.0-54.0)
[2023-04-23 19:39] LABS: Lactic Acid 1.5 mmol/L (0.4-1.9)
[2023-04-23] MEDS: LORazepam 2 MG/ML Syringe 1 MG IV (19:59)
[2023-04-23] MEDS: Morphine 4 MG/ML Syringe IV (20:00)
[2023-04-23] MEDS: Ondansetron 4 MG/2 ML Vial IV (20:00)
[2023-04-23 20:34] LABS: Reflex Lactate? Y
[2023-04-23 21:14] LABS: Lactic Acid 0.9 mmol/L (0.4-1.9)
== END 2023-04-24 00:03 | disposition other institution (70) ==
PROVIDERS: Emergency Medicine; Emergency Provider Emergency Medicine; PCP Student in an Organized Health Care Education/Training Program; Visit Provider Emergency Medicine
DX: R56.9 Unspecified convulsions (principal); E87.20 Acidosis, unspecified; F43.0 Acute stress reaction; R07.9 Chest pain, unspecified; D50.9 Iron deficiency anemia, unspecified; I10 Essential (primary) hypertension; E78.00 Pure hypercholesterolemia, unspecified; Z87.891 Personal history of nicotine dependence
CPT/HCPCS: 80048; 80164; 83605; 84146; 84484; 85025; 93005; 96372; 96374; 96375; 96376; 99284; A4216; J2405

== ENCOUNTER 2024-07-08 23:08 | Emergency (ER) | payer MEDICARE, MEDICAID, SELFPAY ==
[2024-07-08 23:09] VITALS: BP 177/98; PULSE 80; RESP 16; TEMP 37.1; O2SAT 97
--- NOTE | 2024-07-08 23:24 | CT_ITS ---
INDICATION: seizures EXAMINATION: CT BRAIN - CT Head or Brain W/O Contrast Injection TECHNIQUE: Multiple axial images were obtained of the head without intravenous contrast. A radiation dose optimization technique was used for this scan. IV Contrast dosage and agent: None. COMPARISON: February 22, 2022 FINDINGS: BRAIN PARENCHYMA: No intra- or extra-axial hemorrhage. No evidence of acute infarct. No intracranial mass or mass effect. Unremarkable white matter for age. There is preservation of the hsu/white matter interface. Posterior fossa structures are unremarkable. CSF SPACES: Cerebral volume appropriate for age. No hydrocephalus. Basal cisterns are patent. CALVARIUM, SKULL BASE, PARANASAL SINUSES AND MASTOID AIR CELLS: Left nares metallic piercing. No acute osseous finding. [place]al sinuses are clear. Mastoid air cells are clear. ORBITS: Both globes, extraocular muscles, optic nerves and retrobulbar fat appear unremarkable. ASPECTS Score for Acute Strokes: 10 CT/Brain/Head without Contrast IMPRESSION: No acute intracranial finding. Electronically Signed: Steffen Dunlap MD at 0:09 EDT ,
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
[2024-07-08] MEDS: LORazepam 2 MG/ML Syringe 1 MG IV (23:34)
[2024-07-08] MEDS: 0.9% Normal Saline (1000mL) 1,000 ML 150 ML IV (23:34)
[2024-07-08 23:41] LABS: Absolute Lymphocyte Count 1.67 X10^3/uL (0.83-4.51); Absolute Neutrophil Count 6.7 X10^3/uL (2.0-7.7); Basophil# 0.07 X10^3/uL; Basophil% 0.8 % (0-1); Eosinophil# 0.01 X10^3/uL; Eosinophils% 0.1 % (0-5); Hemoglobin 14.2 g/dL (12.0-15.0); Lymphocyte # 1.67 X10^3/ul (0.83-4.51); Lymphocyte % 18.1 % (19-41); Mean Corpuscular Hgb 31.1 pg (27.0-32.0); Mean Corpuscular Volume 94.3 fL (81-99); Mean Platelet Vol. 9.9 fl (6.2-12.0); Monocyte# 0.78 X10^3/uL; Monocyte% 8.4 % (0-10); NRBC Flagged by Analyzer 0 % (0-5); Neutrophil # 6.68 X10^3/uL (2.7-7.7); Neutrophil % 72.3 % (47-70); Platelet Count 350 K/mm3 (150-450); RBC Distribution Width CV 11.3 % (11.6-14.6); Red Blood Count 4.56 M/mm3 (4.2-5.4); White Blood Count 9.2 K/mm3 (4.4-11.0)
[2024-07-08 23:59] LABS: Valproic Acid (Depakene) Level 70 ug/mL (50-100)
[2024-07-09 00:08] VITALS: BP 166/97; PULSE 75; RESP 20; O2SAT 95
[2024-07-09 00:09] LABS: ALB/GLOB Ratio 0.9 RATIO (0.9-2.4); AST(SGOT) 18 U/L (15-37); Alanine Aminotransfer ALT/SGPT 15 U/L (13-56); Albumin, Serum 3.8 g/dL (3.2-5.0); Alkaline Phosphatase 91 U/L (45-117); Anion Gap 9 (5-15); BUN 13 mg/dL (7-18); BUN/Creat Ratio 11.5 RATIO (10-20); Calcium,Total 10.5 mg/dL (8.5-10.1); Chloride 103 mmol/L (98-107); Creatinine, Serum 1.13 mg/dL (0.55-1.02); EST Glomerular Filtration Rate 54 mL/min (>60); Est Glom Filt Rate - Afr Amer 65 mL/min (>60); Globulin 4.3 g/dL (2.2-4.2); Glucose 123 mg/dL (74-106); Protein, Total 8.1 g/dL (6.4-8.2); Sodium Level 139 mmol/L (136-145)
[2024-07-09 00:24] LABS: Bacteria 0 SEEN /hpf (None Seen); Mucous, Urine 0 SEEN /hpf (<or=2+); Red Blood Cells-Urine 0 SEEN /hpf (0-5); Squamous Epithelial Cells - UA 0 SEEN /hpf (5-10); White Blood Cells 0 SEEN /hpf (0-5)
[2024-07-09 00:26] LABS: Color, Urine Yellow (Yellow); Glucose, Dipstick Normal (Normal); Ketone-Dipstick 5 mg/dl (Negative); Leukocyte Esterase-Dipstick 25 /ul (Negative); Nitrite-Dipstick Negative (Negative); Occult Blood-Urine Negative /ul (Negative); Protein-Dipstick 30 mg/dl (Negative); Urine Bilirubin Dipstick Negative (Negative); Urine Clarity Sl. Cloudy (Clear); Urine Urobilinogen 1 mg/dl (Normal)
[2024-07-09 00:39] LABS: Calcium Oxalate Crystals Ur 3+ /hpf (<or=2+)
[2024-07-09] MEDS: Ketorolac 15 MG/ML Vial IV (00:56)
[2024-07-09] MEDS: Metoclopramide 10 MG/2 ML Vial IV (00:57)
[2024-07-09] MEDS: DiphenhydrAMINE 50 MG/ML Syringe 25 MG IV (00:57)
[2024-07-09 01:00] VITALS: BP 160/86; PULSE 65; RESP 19; O2SAT 96
[2024-07-09 02:00] VITALS: BP 168/97; PULSE 56; RESP 13; O2SAT 95
[2024-07-09] MEDS: Morphine 4 MG/ML Syringe IV (02:01)
[2024-07-09 02:50] VITALS: BP 155/95; PULSE 58; RESP 16; TEMP 36.3; O2SAT 95
[2024-07-10 08:12] LABS: PROLACTIN 24.3 ng/mL (3.6-25.2)
== END 2024-07-09 02:55 | disposition home or self-care (01) ==
PROVIDERS: Emergency Provider Emergency Medicine; PCP Student in an Organized Health Care Education/Training Program; Visit Provider Emergency Medicine
DX: F44.5 Conversion disorder with seizures or convulsions (principal); G43.909 Migraine, unspecified, not intractable, without status migrainosus; I10 Essential (primary) hypertension; R07.9 Chest pain, unspecified; R06.00 Dyspnea, unspecified; Z79.899 Other long term (current) drug therapy; Z87.891 Personal history of nicotine dependence
CPT/HCPCS: 70450; 80053; 80164; 81001; 84146; 85025; 96361; 96374; 96375; 99284; J7030; A4216